=== PATIENT | female | born 1960 | race Caucasian/White ===

== ENCOUNTER 2017-04-10 06:24 | Day surgery (SDC) | payer BC ==
[2017-04-08 09:07] VITALS: BMI 38.7
[~2017-04-10 06:24] MED LIST: ALPRAZolam 0.25 MG TAB PO PRN; ALPRAZolam 0.5 MG TAB PO PRN; ASPIRIN 325 MG TAB PO STA; ATORVASTATIN 80 MG TAB PO STA; NITROGLYCERIN SL TABS 0.4 MG TAB SUBLINGUAL PRN
[2017-04-10] MEDS ORDERED: SODIUM CHLORIDE 0.9% 1,000 ML in EMPTY BAG 1 BAG IV ONE (06:30)
[2017-04-10] MEDS ORDERED: INSULIN LISPRO (humaLOG) 300 UNIT/3 ML VIAL SQ ONE (06:53)
[2017-04-10 06:54] LABS: Glucose,Whole Blood 210 mg/dL (75-99)
[2017-04-10] MEDS ORDERED: LIDOCAINE 2% INJ 20 MG/ML (20 ML MDV) ONE (07:07)
[2017-04-10] MEDS ORDERED: VERAPAMIL 2.5 MG/ML 2 ML AMP ONE (07:07)
[2017-04-10 07:17] VITALS: PULSE 66
[2017-04-10] MEDS ORDERED: fentaNYL (PF) 50 MCG/ML 2 ML AMP ONE (07:17)
[2017-04-10] MEDS ORDERED: diphenhydrAMINE 50 MG/ML 1 ML VIAL ONE (07:17)
[2017-04-10] MEDS ORDERED: HEPARIN SODIUM 1,000 UN/ML (10ML VL) ONE (07:17)
[2017-04-10 07:25] LABS: Anion Gap 9 mmol/L; Blood Urea Nitrogen 17 mg/dL (7-17); Calcium 9.7 mg/dL (8.4-10.2); Carbon Dioxide 33 mmol/L (22-30); Chloride 100 mmol/L (98-107); Glucose 182 mg/dL (74-99); Non-African American GFR(MDRD) >60 (>60 ml/min/1.73 sqM); Sodium 142 mmol/L (137-145)
[2017-04-10] MEDS ORDERED: SODIUM CHLORIDE 0.9% 1,000 ML IV ONE (07:40)
[2017-04-10] MEDS ORDERED: fentaNYL (PF) 50 MCG/ML 2 ML AMP IVP ONE (07:46)
[2017-04-10] MEDS ORDERED: LIDOCAINE 2% INJ 20 MG/ML SQ ONE (07:48)
[2017-04-10] MEDS ORDERED: MIDAZOLAM 2 MG/2 ML VIAL ONE (07:49)
[2017-04-10] MEDS ORDERED: VERAPAMIL SYRINGE (5 MG/10 ML) INTRAARTER ONE (07:50)
[2017-04-10] MEDS ORDERED: MIDAZOLAM 2 MG/2 ML VIAL IVP ONE (07:51)
[2017-04-10] MEDS ORDERED: IOHEXOL 350 MG/ML 125ML BOTTLE INJ ONE (08:03)
[2017-04-10] MEDS ORDERED: RX INFO: IV CONTRAST WAS GIVEN 1 EACH MISC MISCELLANE PRN (08:23)
[2017-04-10] MEDS ORDERED: SODIUM CHLORIDE 0.9% 1,000 ML IV SCH (08:30)
[2017-04-10 08:35] VITALS: RESP 18
[2017-04-10 08:35] LABS: Glucose,Whole Blood 173 mg/dL (75-99)
[2017-04-10] MEDS ORDERED: ATENOLOL 25 MG TAB PO SCH (09:00)
[2017-04-10] MEDS ORDERED: NON-FORMULARY DRUG (Aspirin [Adult Low Dose Aspirin Ec] 81 MG) PO SCH (09:00)
[2017-04-10] MEDS ORDERED: BACLOFEN 10 MG TAB PO SCH (09:00)
[2017-04-10] MEDS ORDERED: PREGABALIN 75 MG CAP PO SCH (09:00)
[2017-04-10] MEDS ORDERED: HYDROCHLOROTHIAZIDE 25 MG TAB PO SCH (09:00)
[2017-04-10] MEDS ORDERED: RAMIPRIL 10 MG PO SCH (09:00)
[2017-04-10 12:59] VITALS: BP 144/74
[2017-04-10] MEDS ORDERED: VERAPAMIL HCL 200 MG PO SCH (21:00)
[2017-04-10] MEDS ORDERED: INSULIN GLARGINE SQ SCH (21:00)
[2017-04-10] MEDS ORDERED: VENLAFAXINE HCL ER 150 MG CAP PO SCH (21:00)
--- NOTE | 2017-04-10 21:19 | CC ---
Mrs. Rankin is a 57 year old female with a known history of hypertension, hyperlipidemia, diabetes mellitus, who recently underwent myocardial perfusion imaging that revealed evidence of inferior wall defect with evidence of cardiomyopathy. In view of that recommendation was made regarding cardiac catheterization. The procedure as well as risks and complications were discussed with the patient who is in full understanding and agreement. PROCEDURE: The patient was brought to the quality assurance qa lab analyst in a fasting semi-sedated state. After receiving Fentanyl and Benadryl, achieving moderate conscious sedated state, using Xylocaine anesthesia and Seldinger technique, a 6 Andorran sheath was introduced into the right radial artery . Selective right and left coronary artery was performed using 5 Andorran 4 Bend, right and left Claude catheter. Multiple views of the right coronary artery including hemiaxial views were obtained. Following that, the 5 Andorran tight pigtail catheter was introduced into the left ventricle and a 30 degree BURRIS view of the left ventricle was obtained. Following that, catheter and sheath were removed. Hemostasis was obtained with deployment of a TR band. There were no immediate complications. The patient was returned to her room in stable condition. Of note, the patient received 5000 units of intravenous heparin as well as intra- arterial verapamil. FINDINGS: LEFT MAIN: This is a large size vessel bifurcating into left circumflex, left anterior descending artery. Left main coronary artery has no evidence of obstructive coronary artery disease. LEFT ANTERIOR DESCENDING ARTERY: This is a large size vessel reaching towards the apex with a wrap around the apex segment giving rise to a diagonal branch large in caliber proximally. The left anterior descending artery in the mid segment has 30% plaque. The rest of the vessel has no high grade stenosis. LEFT CIRCUMFLEX: This is a large nondominant vessel, large vessel, giving rise to a large obtuse marginal branch. The left circumflex as well as branches have no evidence of obstructive coronary artery disease. RIGHT CORONARY ARTERY: This is a large dominant vessel, bifurcating distally into PDA and posterolateral segment and branches. The right coronary artery and its branches have no evidence of obstructive coronary artery disease. LEFT VENTRICULOGRAM: Left ventriculogram was performed in 30 degree BURRIS view and revealed global hypokinesis with an ejection fraction of 30 to 35%. There was 2+ mitral regurgitation. HEMODYNAMICS: There was no gradient across the aortic valve. The left ventricular end diastolic pressure was 22 mmHg. CONCLUSION: 1. Mild obstructive disease involving the mid left anterior descending coronary artery. 2. Severely impaired left ventricular systolic function with global hypokinesis. RECOMMENDATIONS: The findings are consistent with nonischemic cardiomyopathy. At this time, I will continue medical therapy with optimizing her regimen. Depending on her progress, further recommendations will be made. Those findings and recommendations were discussed with the patient and her family who are in full understanding and agreement. JARETT
--- NOTE | 2017-04-10 21:23 | MISC ---
Dear Dr. Schwartz: I had the pleasure of performing cardiac catheterization on Mrs. Rankin at [facility] on April 10 and a full copy of procedure note will be forwarded to you. In brief, she was found to have mild obstructive disease involving the mid LAD with severely impaired left ventricular systolic function with global hypokinesis, consistent with nonischemic cardiomyopathy. Based on those findings, I will optimize her medical regimen. Depending on her progress, further recommendations will be made. Thank you again for allowing me to participate in her care. Please feel free to call for any questions. Sincerely yours, JARETT
== END 2017-04-10 13:15 | disposition home or self-care (01) ==
LOC: CATHCVL 06:24
PROVIDERS: ATTEND Internal Medicine Interventional Cardiology
DX: I25.10 Atherosclerotic heart disease of native coronary artery without angina pectoris (principal); I25.5 Ischemic cardiomyopathy; E78.2 Mixed hyperlipidemia; I10 Essential (primary) hypertension; E11.9 Type 2 diabetes mellitus without complications; E78.00 Pure hypercholesterolemia, unspecified; M19.90 Unspecified osteoarthritis, unspecified site; I08.1 Rheumatic disorders of both mitral and tricuspid valves; Z82.49 Family history of ischemic heart disease and other diseases of the circulatory system; Z79.84 Long term (current) use of oral hypoglycemic drugs; Z79.82 Long term (current) use of aspirin; Z79.4 Long term (current) use of insulin; Z79.891 Long term (current) use of opiate analgesic; Z79.899 Other long term (current) drug therapy; Z88.1 Allergy status to other antibiotic agents; Z88.0 Allergy status to penicillin; Z88.8 Allergy status to other drugs, medicaments and biological substances
CPT/HCPCS: 93458; 80048; 99152; C1894; C1769; J2001; J2250; J3010; Q9967

== ENCOUNTER 2017-09-06 11:09 | Day surgery (SDC) | payer BC ==
[2017-09-03 13:49] VITALS: BMI 41.8
--- NOTE | 2017-09-05 21:47 | HP ---
HISTORY AND PHYSICAL CHIEF COMPLAINT: Left hand pain and numbness. HISTORY OF PRESENT ILLNESS: The patient is a 57-year-old retired female who presents with progressive left hand pain and numbness for the past several years. It has worsened recently. She notes pain, numbness, and difficulty with gripping and grasping. She is having night symptoms. She has tried previous injections along with bracing and medications with only partial temporary relief. PAST MEDICAL HISTORY: Significant for hypertension, type 2 diabetes, and rheumatic fever. PAST SURGICAL HISTORY: Significant for cardiac catheterizations, section, cholecystectomy, colonoscopy, and recent right carpal tunnel release. CURRENT MEDICATIONS: Aspirin, baclofen, Flonase, albuterol, hydrochlorothiazide, oxycodone, Requip, and Ventolin. ALLERGIES: SHE NOTES SENSITIVITY TO CODEINE with ALLERGIES SHE NOTES TO AMOXICILLIN AND AUGMENTIN. FAMILY HISTORY: Significant for heart disease, diabetes, and cancer. SOCIAL HISTORY: Significant for previous tobacco use, however she quit in 1989. REVIEW OF SYSTEMS: Sixteen point review of systems otherwise reviewed and is noncontributory. On examination, the patient is approximately 5 feet tall, 216 pounds, of endomorphic habitus. HEENT exam is nonfocal. NECK: Supple. She is nontender about the left shoulder and elbow. On examination of her left wrist, she has a positive carpal tunnel compression test in addition to positive Tinel's of the carpal canal. Mild thenar atrophy is noted. Adductor pollicis brevis strength is 5 minus over 5. Light touch is diffusely diminished in the left digits. Her distal neurovascular exam otherwise appears intact. EMG report from 07/22/2017 shows moderate left carpal tunnel syndrome. IMPRESSION: 1. Left carpal tunnel syndrome-symptomatic. 2. Increased body mass index. 3. Giv-hadbpdq-pkajyczeb diabetes. RECOMMENDATIONS: I talked to the patient at length regarding her treatment options. At this point, she is quite symptomatic and opts to proceed with surgery. We will plan to proceed with left carpal tunnel release. Likely we will perform that as an outpatient procedure utilizing local anesthetic and IV sedation. MMODL / IJN: [id number] /
[~2017-09-06 11:09] MED LIST changes: -ALPRAZolam 0.25 MG TAB PO PRN; -ALPRAZolam 0.5 MG TAB PO PRN; -ASPIRIN 325 MG TAB PO STA; -ATORVASTATIN 80 MG TAB PO STA; +LACTATED RINGERS 1,000 ML IV SCH; -NITROGLYCERIN SL TABS 0.4 MG TAB SUBLINGUAL PRN; +ONDANSETRON 4 MG/2 ML VIAL IVP PRN; +ceFAZolin IN SWFI 2 GM/20 ML SYRINGE IVP ONE; +fentaNYL (PF) 50 MCG/ML 2 ML AMP IV PRN
[2017-09-06 11:23] VITALS: RESP 16; TEMP 98.1
[2017-09-06] MEDS ORDERED: LIDOCAINE 1% 20 ML VIAL (10MG/ML) FOR IV START INTRADERMA ONE (11:32)
[2017-09-06] MEDS ORDERED: DEXAMETHASONE SOD PHOS (MDV) 100 MG/10 ML VIAL IVP ONE (11:35)
[2017-09-06 11:36] LABS: Glucose,Whole Blood 136 mg/dL (75-99)
[2017-09-06] MEDS ORDERED: SCOPOLAMINE 1.5MG/72HR PATCH TRANSDERM ONE (11:36)
[2017-09-06] MEDS ORDERED: MIDAZOLAM 2 MG/2 ML VIAL ONE (11:37)
[2017-09-06] MEDS ORDERED: PROPOFOL 10 MG/ML 20 ML VIAL IV ONE (11:37)
[2017-09-06] MEDS ORDERED: MORPHINE SULFATE 10 MG/ML SYRINGE ONE (11:37)
[2017-09-06] MEDS ORDERED: LIDOCAINE 1% INJ 10MG/ML (20 ML MDV) ONE (11:37)
[2017-09-06] MEDS ORDERED: BUPIVACAINE (PF) 0.25% 30 ML VIAL SQ ONE (11:51)
--- NOTE | 2017-09-06 12:07 | P.OP ---
Date of Procedure: 09/06/17 Preoperative Diagnosis: Left carpal tunnel syndrome-symptomatic Postoperative Diagnosis: Same Procedure(s) Performed: Left carpal tunnel release Anesthesia: MAC, local Surgeon: Burak Tuttle Estimated Blood Loss (ml): 1 Pathology: none sent Condition: stable Disposition: PACU Indications for Procedure: The patient's a 57-year-old female who presents with progressive left hand pain and numbness secondary carpal tunnel syndrome despite conservative measures. A discussion of the risks and benefits of operative intervention versus continued conservative measures was made with the patient. She opted to proceed with surgery. Operative risks to include infection, neurovascular injury, possible incomplete resolution of symptoms, possible recurrence of symptoms and need for subsequent procedures was discussed. Informed consent was obtained. Operative Findings: As below Description of Procedure: The patient was brought to the operating room, and after induction of IV sedation the left upper extremity was prepped and draped in a normal fashion. The proposed incision site was outlined with a skin marker in line with the radial aspect of the fourth ray extending from the volar wrist crease distally 2 -1/2 cm. 8 mL of quarter percent plain Marcaine was injected. The tourniquet was inflated to 250 mmHg. The skin incision was then made. The the subcutaneous tissues were divided sharply. The superficial palmar fascia was identified and split in line with the skin incision. The transverse carpal ligament was identified and transected under direct visualization distally to level palmar fat pad. I felt this was adequate distal release. Proximally was taken level the volar wrist crease. A plane above and below the transverse carpal ligament was then bluntly developed with tenotomies. The confluence of the distal forearm fascia and the transverse carpal ligament was then transected under direct visualization proximally with the tines pointed in the ulnar direction. I felt this was adequate proximal release. Neural lysis was not performed. The wound was irrigated normal saline. The skin was reprepped with simple 3-0 nylon sutures. A sterile dressing was applied. The tourniquet was deflated less than 15 minutes total tourniquet time. The patient was awoken from sedation and transferred to recovery room in good condition. Blood loss was estimated at 1 mL. No complications were incurred. Sponge and needle counts were correct at the end the case.
[2017-09-06 12:37] VITALS: BP 112/53; PULSE 71
== END 2017-09-06 12:44 | disposition home or self-care (01) ==
LOC: OR 11:09
PROVIDERS: ATTEND Orthopaedic Surgery
DX: G56.02 Carpal tunnel syndrome, left upper limb (principal); I10 Essential (primary) hypertension; J44.9 Chronic obstructive pulmonary disease, unspecified; E11.9 Type 2 diabetes mellitus without complications; Z79.4 Long term (current) use of insulin; Z87.891 Personal history of nicotine dependence; M79.7 Fibromyalgia; Z79.82 Long term (current) use of aspirin; Z79.891 Long term (current) use of opiate analgesic; Z79.51 Long term (current) use of inhaled steroids; Z79.899 Other long term (current) drug therapy; Z88.5 Allergy status to narcotic agent; Z88.0 Allergy status to penicillin
CPT/HCPCS: 64721; J2250; J2270; J0690; J2405; J2001; J1100; J2704

== ENCOUNTER → 2018-02-20 | Outpatient (CLI) | payer BC ==
--- NOTE | 2018-02-20 13:51 | XR ---
EXAMINATION TYPE: XR foot complete RT DATE OF EXAM: 02/20/2018 CLINICAL HISTORY: Right foot pain for one week. TECHNIQUE: Frontal, lateral, and oblique images of the right foot are obtained. COMPARISON: None FINDINGS: There is no acute fracture/dislocation evident in the right foot. There is flexion in the second through fifth toes. There is varus positioning distal third through fifth toes. There are smal l size superior and large size inferior calcaneal spurs. There is mild to moderate spurring midfoot l evel near the Lisfranc joints seen best on lateral view along dorsal surface. Mild diffuse subcutaneo us edema is present. IMPRESSION: There are degenerative changes as detailed above.
== END | disposition home or self-care (01) ==
LOC: RADXRMAIN 13:23
PROVIDERS: ATTEND Family Medicine
DX: R93.7 Abnormal findings on diagnostic imaging of other parts of musculoskeletal system (principal); M79.671 Pain in right foot

== ENCOUNTER → 2018-11-04 | Outpatient (CLI) | payer BC ==
--- NOTE | 2018-11-05 10:07 | MM ---
Reason for exam: screening (asymptomatic). Last mammogram was performed 3 years and 3 months ago. History: Family history of breast cancer in 2 sisters. Physical Findings: A clinical breast exam by your physician is recommended on an annual basis and results should be correlated with mammographic findings. MG Screening Mammo w CAD Bilateral CC and MLO view(s) were taken. Prior study comparison: July 22, 2015, bilateral MG screening mammo w CAD. February 26, 2014, bilateral MG screening mammo w CAD. There are scattered fibroglandular densities. Finding: There is a 3 mm equal density (isodense), oval mass in the subareolar position of the right breast. ASSESSMENT: Incomplete: need additional imaging evaluation, BI-RAD 0 RECOMMENDATION: Special view mammogram of the right breast. If lesion persists on supplemental views, image directed ultrasound is recommended. [facility] will attempt to contact patient to return for supplemental views and ultrasound if indicated.
== END | disposition home or self-care (01) ==
LOC: RADMAMWWP 07:38
PROVIDERS: ATTEND Family Medicine
DX: Z12.31 Encounter for screening mammogram for malignant neoplasm of breast (principal)
CPT/HCPCS: 77067

== ENCOUNTER → 2018-11-07 | Outpatient (CLI) | payer BC ==
--- NOTE | 2018-11-10 08:33 | MM ---
Reason for exam: additional evaluation requested from abnormal screening. Last mammogram was performed less than 1 month ago. History: Patient is postmenopausal. Family history of breast cancer in sister at age 21. Physical Findings: Nurse did not find any significant physical abnormalities on exam. MG Work Up Mamm w CAD RT Spot compression CC, spot compression MLO, and ML view(s) were taken of the right breast. Prior study comparison: November 04, 2018, bilateral MG screening mammo w CAD. July 22, 2015, bilateral MG screening mammo w CAD. There are scattered fibroglandular densities. There is no discrete abnormality. Previous nodule on compression. This finding is changed when compared with previous exams. These results were verbally communicated with the patient and result sheet given to the patient on 11/07/18. ASSESSMENT: Incomplete: need additional imaging evaluation, BI-RAD 0 RECOMMENDATION: Ultrasound of the right breast.
--- NOTE | 2018-11-10 08:35 | USB ---
Reason for exam: additional evaluation requested from abnormal screening. History: Patient is postmenopausal. Family history of breast cancer in sister at age 21. US Breast Workup Limited RT Right limited breast ultrasound including focal area of concern, retroareolar and axilla demonstrates a 0.3 x 0.4 x 0.3cm solid lesion at posterior nipple. These results were verbally communicated with the patient and result sheet given to the patient on 11/07/18. ASSESSMENT: Suspicious, BI-RAD 4 RECOMMENDATION: Ultrasound core biopsy of the right breast. Called with mammographic findings and has scheduled an appointment for the patient for 11/17/[address] Schwartz. PRELIMINARY REPORT CALLED AND FAXED TO DR. SCHWARTZ ON 11/10/18.
== END | disposition home or self-care (01) ==
LOC: RADMAMWWP 13:01
PROVIDERS: ATTEND Family Medicine
DX: R92.8 Other abnormal and inconclusive findings on diagnostic imaging of breast (principal)
CPT/HCPCS: 77065

== ENCOUNTER → 2018-12-01 | Day surgery (SDC) | payer BC ==
[2018-12-01 07:49] VITALS: RESP 16; BMI 96.0
--- NOTE | 2018-12-01 15:20 | USB ---
EXAMINATION TYPE: US biopsy breast VAD RT, MG diagnostic mammo RT wo CAD DATE OF EXAM: 12/01/2018 CLINICAL HISTORY: R92.8 PREV ABN MAMMO. TECHNIQUE: Ultrasound guided core biopsy of right breast. COMPARISON: 11/07/2018 FINDINGS: The procedure of ultrasound guided core biopsy was explained to the patient. Benefits, alternatives, and risks were discussed. An informed consent was then obtained. Preprocedural timeout was performed. The patient was placed in supine positioning for imaging and for the procedure. The overlying skin was prepped and draped in usual sterile fashion. Lidocaine buffered with bicarbonate was used as anesthetic into the skin and subcutaneous tissue up to a 3 x 4 x 3 mm retroareolar mass. Under ultrasound guidance, a 12-gauge vacuum assisted biopsy gun device was used to obtain 4 core samples. Following this, a ribbon-shaped biopsy marker was left at the site of biopsy. The patient tolerated the procedure well without any immediate complication. The patient was kept in the radiology department for short stay after the procedure and then discharged home in stable condition. IMPRESSION: Successful, uncomplicated ultrasound guided core biopsy of a 3 x 4 x 3 mm retroareolar right breast mass, full pathology results to follow. Pathology Results: Benign RIGHT BREAST, NEEDLE CORE BIOPSIES: Fibrocystic spectrum changes. Pseudoangiomatous stromal hyperplasia (PASH). Recommendation Surgical consult of the right breast. (TUCKER) JARETT
[2018-12-01 16:23] VITALS: BP 169/89; PULSE 63; TEMP 98.1
== END | disposition home or self-care (01) ==
LOC: RADUSWWP 07:07
PROVIDERS: ATTEND Family Medicine
DX: N60.11 Diffuse cystic mastopathy of right breast (principal); N62 Hypertrophy of breast
CPT/HCPCS: 88305; 77065; 19083; A4648; J2001

== ENCOUNTER → 2019-03-18 | Outpatient (CLI) | payer BC ==
--- NOTE | 2019-03-18 10:19 | XR ---
EXAMINATION TYPE: XR thoracic spine 2V DATE OF EXAM: 03/18/2019 CLINICAL HISTORY: Back pain after injury. TECHNIQUE: Frontal, lateral, and swimmer's view of thoracic spine are obtained. COMPARISON: None. FINDINGS: Thoracic spine show satisfactory alignment without evidence of acute fracture or dislocatio n. Moderate multilevel degenerative disc disease is seen of the thoracic spine as bridging anterior o steophytes and intervertebral disc space narrowing at multiple levels with endplate sclerosis. Swimme r's view is suboptimal. Vertebral body heights are preserved. Visualized ribs are unremarkable. IMPRESSION: Although the swimmer's view is suboptimal there is no gross evidence of vertebral body he ight loss or malalignment within the thoracic spine. Moderate multilevel degenerative disc disease is seen.
== END | disposition home or self-care (01) ==
LOC: RADXRMAIN 09:45
PROVIDERS: ATTEND Family Medicine
DX: M51.34 Other intervertebral disc degeneration, thoracic region (principal)
CPT/HCPCS: 72070

== ENCOUNTER 2019-08-10 09:51 | Observation (INO) | payer BC ==
[2019-08-10 10:01] VITALS: RESP 18
--- NOTE | 2019-08-10 10:29 | ED ---
General Adult HPI - General Chief complaint: Shortness of Breath Stated complaint: SOB Time Seen by Provider: 08/10/19 10:10 Source: patient, family, RN notes reviewed Mode of arrival: ambulatory Limitations: no limitations - History of Present Illness Initial comments: Patient is a pleasant 59-year-old female presenting to the emergency Department with complaints of shortness of breath. Onset of symptoms was today. Patient does have some chronic mild dyspnea that has been diagnosed as asthma. Patient states she never really had an asthma attack. Patient does not hear any wheezing. Patient denies any chest or new back discomfort. Patient does have some chronic back discomfort however this is chronic and unchanged. No leg pain or leg swelling. No cough. No fevers. No history of similar symptoms previously. - Related Data Home Medications Medication Instructions Recorded Confirmed Baclofen 10 mg PO TID 04/08/17 12/01/18 Hydrochlorothiazide 25 mg PO DAILY 04/08/17 12/01/18 Insulin Glargine,Hum.rec.anlog 110 units SQ HS 04/08/17 12/01/18 [Toujeo Solostar] Pregabalin [Lyrica] 75 mg PO TID 04/08/17 12/01/18 Ramipril 10 mg PO DAILY 04/08/17 12/01/18 metFORMIN HCL 2,000 mg PO AC-SUPPER 04/08/17 12/01/18 oxyCODONE HCL [OxyCONTIN] 30 mg PO Q6H PRN 04/08/17 12/01/18 Albuterol Inhaler [Ventolin Hfa 1 - 2 puff INHALATION Q6HR PRN 08/12/17 12/01/18 Inhaler] Ascorbic Acid [Vitamin C] 500 mg PO DAILY 08/12/17 12/01/18 Calcium/Magnesium/Zinc 1 each PO DAILY 08/12/17 12/01/18 [Ysijevx-Sbhhgmgvp-Flhd Tablet] Cholecalciferol [Vitamin D3] 1,200 unit PO DAILY 08/12/17 12/01/18 Fenofibrate Nanocrystallized 145 mg PO DAILY 08/12/17 12/01/18 [Fenofibrate] Multivitamins, Thera [Multivitamin 1 tab PO DAILY 08/12/17 12/01/18 (formulary)] Atenolol [Tenormin] 25 mg PO DAILY 11/17/18 12/01/18 Atenolol [Tenormin] 50 mg PO HS 11/17/18 12/01/18 Fluticasone/Vilanterol [Breo 1 inhalation INHALATION DAILY 11/17/18 12/01/18 Ellipta 200-25 Mcg INH] Insulin Aspart [NovoLOG] 15 units SQ ACHS 11/17/18 12/01/18 Allergies Allergy/AdvReac Type Severity Reaction Status Date / Time clavulanic acid Allergy Anaphylaxis Verified 12/01/18 07:37 [From Augmentin] codeine Allergy Abdominal Verified 12/01/18 07:37 Pain fentanyl Allergy Anaphylaxis Verified 12/01/18 07:37 levofloxacin [From Levaquin] Allergy Anaphylaxis Verified 12/01/18 07:37 amoxicillin AdvReac doesn't Verified 12/01/18 07:37 work Review of Systems ROS Statement: Those systems with pertinent positive or pertinent negative responses have been documented in the HPI. ROS Other: All systems not noted in ROS Statement are negative. Constitutional: Denies: fever, chills Eyes: Denies: eye pain ENT: Denies: ear pain Respiratory: Reports: as per HPI, dyspnea. Denies: cough Cardiovascular: Denies: chest pain Endocrine: Denies: fatigue Gastrointestinal: Denies: abdominal pain Genitourinary: Denies: dysuria Musculoskeletal: Denies: back pain Skin: Denies: rash Neurological: Denies: weakness Past Medical History Past Medical History: Asthma, Diabetes Mellitus, Fibromyalgia, Hyperlipidemia, Hypertension, Musculoskeletal Disorder, Osteoarthritis (OA) Additional Past Medical History / Comment(s): Rheumatic fever as a child. +Influenza A diagnosed 11/17/18 History of Any Multi-Drug Resistant Organisms: MRSA Date of last positivie culture/infection: 2008 MDRO Source:: R foot Past Surgical History: Adenoidectomy, Bladder Surgery, Section, Cholecystectomy, Ear Surgery, Joint Replacement, Tonsillectomy Additional Past Surgical History / Comment(s): R hip replacement; 2 hand surgeries Past Anesthesia/Blood Transfusion Reactions: Previous Problems w/ Anesthesia, Family History of Problems w/ Anesthesia, Motion Sickness, Postoperative Nausea & Vomiting (PONV) Additional Past Anesthesia/Blood Transfusion Reaction / Comment(s): mother gets PONV Past Psychological History: Depression Smoking Status: Former smoker Past Alcohol Use History: None Reported Past Drug Use History: None Reported - Past Family History Father Family Medical History: Cancer Mother Family Medical History: Cancer Brother(s) Family Medical History: Cancer General Exam Limitations: no limitations General appearance: alert, in no apparent distress Head exam: Present: normocephalic Eye exam: Present: normal appearance, PERRL ENT exam: Present: normal oropharynx Neck exam: Present: normal inspection Respiratory exam: Present: normal lung sounds bilaterally Cardiovascular Exam: Present: regular rate, normal rhythm Expanded Peripheral pulses: 2+: Radial (R), Radial (L), Posterior Tibialis (R), Posterior Tibialis (L), Dorsalis Pedis (R), Dorsalis Pedis (L) GI/Abdominal exam: Present: soft. Absent: tenderness Extremities exam: Present: pedal edema (+1 bilateral which patient states is chronic). Absent: calf tenderness Back exam: Present: normal inspection Neurological exam: Present: alert Psychiatric exam: Present: normal affect, normal mood Skin exam: Present: normal color Course Vital Signs 08/10/19 08/10/19 09:57 11:53 Temperature 97.9 F Pulse Rate 83 Respiratory 18 18 Rate Blood Pressure 165/78 159/79 O2 Sat by Pulse 90 L Oximetry EKG Findings - EKG Comments: EKG Findings:: Normal sinus rhythm 77. WA 18. QRS 110. QT 402. QTC 54. Normal axis. Normal QRS. No acute ST change. Medical Decision Making - Medical Decision Making Patient reevaluated and updated. Case was discussed in detail with Dr. Ulrich, who will admit for Dr. Schwartz. - Lab Data Result diagrams: 08/10/19 10:20 08/10/19 10:20 Lab Results 08/10/19 08/10/19 08/10/19 Range/Units 10:20 10:20 10:20 WBC 6.8 (3.8-10.6) k/uL RBC 4.39 (3.80-5.40) m/uL Hgb 12.0 (11.4-16.0) gm/dL Hct 38.0 (34.0-46.0) % MCV 86.7 (80.0-100.0) fL MCH 27.3 (25.0-35.0) pg MCHC 31.5 (31.0-37.0) g/dL RDW 14.8 (11.5-15.5) % Plt Count 161 (150-450) k/uL Neutrophils % 71 % Lymphocytes % 21 % Monocytes % 5 % Eosinophils % 2 % Basophils % 1 % Neutrophils # 4.9 (1.3-7.7) k/uL Lymphocytes # 1.4 (1.0-4.8) k/uL Monocytes # 0.3 (0-1.0) k/uL Eosinophils # 0.1 (0-0.7) k/uL Basophils # 0.0 (0-0.2) k/uL PT 10.1 (9.0-12.0) sec INR 0.9 (<1.2) APTT 24.0 (22.0-30.0) sec D-Dimer 3.38 H (<0.60) mg/L FEU Sodium 138 (137-145) mmol/L Potassium 4.1 (3.5-5.1) mmol/L Chloride 99 (98-107) mmol/L Carbon Dioxide 27 (22-30) mmol/L Anion Gap 12 mmol/L BUN 25 H (7-17) mg/dL Creatinine 1.05 H (0.52-1.04) mg/dL Est GFR (CKD-EPI)AfAm 68 (>60 ml/min/1.73 sqM) Est GFR (CKD-EPI)NonAf 59 (>60 ml/min/1.73 sqM) Glucose 343 H (74-99) mg/dL Calcium 10.1 (8.4-10.2) mg/dL Total Bilirubin 0.5 (0.2-1.3) mg/dL AST 21 (14-36) U/L ALT 22 (9-52) U/L Alkaline Phosphatase 82 (38-126) U/L Creatine Kinase 30 (30-135) U/L Troponin I (0.000-0.034) ng/mL NT-Pro-B Natriuret Pep pg/mL Total Protein 6.8 (6.3-8.2) g/dL Albumin 4.1 (3.5-5.0) g/dL 08/10/19 08/10/19 Range/Units 10:20 10:20 WBC (3.8-10.6) k/uL RBC (3.80-5.40) m/uL Hgb (11.4-16.0) gm/dL Hct (34.0-46.0) % MCV (80.0-100.0) fL MCH (25.0-35.0) pg MCHC (31.0-37.0) g/dL RDW (11.5-15.5) % Plt Count (150-450) k/uL Neutrophils % % Lymphocytes % % Monocytes % % Eosinophils % % Basophils % % Neutrophils # (1.3-7.7) k/uL Lymphocytes # (1.0-4.8) k/uL Monocytes # (0-1.0) k/uL Eosinophils # (0-0.7) k/uL Basophils # (0-0.2) k/uL PT (9.0-12.0) sec INR (<1.2) APTT (22.0-30.0) sec D-Dimer (<0.60) mg/L FEU Sodium (137-145) mmol/L Potassium (3.5-5.1) mmol/L Chloride (98-107) mmol/L Carbon Dioxide (22-30) mmol/L Anion Gap mmol/L BUN (7-17) mg/dL Creatinine (0.52-1.04) mg/dL Est GFR (CKD-EPI)AfAm (>60 ml/min/1.73 sqM) Est GFR (CKD-EPI)NonAf (>60 ml/min/1.73 sqM) Glucose (74-99) mg/dL Calcium (8.4-10.2) mg/dL Total Bilirubin (0.2-1.3) mg/dL AST (14-36) U/L ALT (9-52) U/L Alkaline Phosphatase (38-126) U/L Creatine Kinase (30-135) U/L Troponin I <0.012 (0.000-0.034) ng/mL NT-Pro-B Natriuret Pep 200 pg/mL Total Protein (6.3-8.2) g/dL Albumin (3.5-5.0) g/dL - Radiology Data Radiology results: report reviewed (Computed tomography scan of the chest reported as multiple small pulmonary emboli. No heart strain as discussed with radiologist.), image reviewed (Chest x-ray reveals no acute process) Critical Care Time Critical Care Time: Yes Total Critical Care Time: 32 Disposition Clinical Impression: Pulmonary embolism Disposition: ADMITTED IP TO THIS HOSP Is patient prescribed a controlled substance at d/c from ED?: No Referrals: Bassem Schwartz DO [Primary Care Provider] - 1-2 days Decision Time: 12:43
--- NOTE | 2019-08-10 10:45 | XR ---
EXAMINATION TYPE: XR chest 2V DATE OF EXAM: 08/10/2019 COMPARISON: NONE HISTORY: Shortness of breath with history of asthma. TECHNIQUE: Frontal and lateral views of the chest are obtained. FINDINGS: There is no focal air space opacity, pleural effusion, or pneumothorax seen. The cardiac silhouette size is mildly enlarged. The osseous structures are intact. Moderate multilevel degenera tive change of the spine. IMPRESSION: No acute cardiopulmonary process.
[2019-08-10 10:50] LABS: Basophils % (A) 1 %; Eosinophils # (A) 0.1 k/uL (0-0.7); Eosinophils % (A) 2 %; Lymphocytes # (A) 1.4 k/uL (1.0-4.8); Lymphocytes % (A) 21 %; MCH 27.3 pg (25.0-35.0); MCHC 31.5 g/dL (31.0-37.0); MCV 86.7 fL (80.0-100.0); Mean Platelet Volume 7.9; Monocytes # (A) 0.3 k/uL (0-1.0); Monocytes % (A) 5 %; Neutrophils # (A) 4.9 k/uL (1.3-7.7); Neutrophils % (A) 71 %; Platelet Count 161 k/uL (150-450); RBC 4.39 m/uL (3.80-5.40); RDW 14.8 % (11.5-15.5); WBC 6.8 k/uL (3.8-10.6)
[2019-08-10 11:00] LABS: Albumin 4.1 g/dL (3.5-5.0); Calcium 10.1 mg/dL (8.4-10.2); Potassium 4.1 mmol/L (3.5-5.1); Total Bilirubin 0.5 mg/dL (0.2-1.3); Total Protein 6.8 g/dL (6.3-8.2)
[2019-08-10 11:03] LABS: INR 0.9 (<1.2); Prothrombin Time 10.1 sec (9.0-12.0)
[2019-08-10 11:36] LABS: D-Dimer 3.38 mg/L FEU (<0.60)
[2019-08-10] MEDS ORDERED: HEPARIN SODIUM,PORCINE 10,000 UNIT/ML 1 ML VIAL IV ONE ×2 (12:31→15:26)
[2019-08-10] MEDS ORDERED: HEPARIN SODIUM,PORCINE 5,000 UNIT/ML 1 ML VIAL IV PRN ×2 (12:31→15:26)
--- NOTE | 2019-08-10 12:33 | CT ---
EXAMINATION TYPE: CT angio chest DATE OF EXAM: 08/10/2019 COMPARISON: NONE HISTORY: Dyspnea. CT DLP: 665 mGycm. Automated Exposure Control for Dose Reduction was Utilized. CONTRAST: CTA scan of the thorax is performed with IV Contrast, patient injected with 80 mL of Isovue 370, pulm onary embolism protocol. MIP Images are created on CT scanner and reviewed. FINDINGS: LUNGS: The lungs are grossly clear, there is no concerning parenchymal mass or nodule identified. T here is no pleural effusion or pneumothorax seen. The tracheobronchial tree is patent. MEDIASTINUM: There are pulmonary emboli within the left main pulmonary artery, left lower lobe segmen kay and subsegmental pulmonary arteries and left upper lobe segmental and subsegmental pulmonary salo reji. There are also filling defects in the segmental and subsegmental branches of the right pulmonar y arteries to the right middle lobe, right upper lobe, and right lower lobe. The main pulmonary arter y is upper limits of normal measuring 2.9 cm. There is no abnormal right ventricular to left ventricu lar ratio. There are no greater than 1 cm hilar or mediastinal lymph nodes. No cardiomegaly or pericardial eff usion is seen. Very few coronary calcification seen. Heart is upper limits of normal size. OTHER: Hepatic steatosis. Moderate multilevel degenerative changes of the spine with findings suggest ing diffuse idiopathic skeletal hyperostosis. IMPRESSION: Exam is positive for pulmonary emboli with filling defects involving segmental and subsegmental branc hes of all major pulmonary lobes as a nonocclusive embolus in the left main pulmonary artery. No conv incing evidence of right heart strain. Findings communicated with Dr. Carpenter by Dr. Brock at 12:31 on 10/11/18.
[2019-08-10] MEDS ORDERED: ENOXAPARIN 100 MG/ML SYRINGE SQ STA (12:37)
[2019-08-10] MEDS ORDERED: NALOXONE 0.4 MG/ML 1 ML VIAL IV PRN (12:43)
[2019-08-10] MEDS ORDERED: HEPARIN SOD,PORK IN 0.45% NACL 25,000 UNIT in 0.45% NACL 1 250ML.BAG IV SCH (12:45)
[2019-08-10] MEDS: SODIUM CHLORIDE 0.9% 1,000 ML IV SCH (14:29)
[2019-08-10] MEDS ORDERED: FUROSEMIDE 20 MG TAB PO PRN (14:43)
[2019-08-10] MEDS: PREGABALIN 75 MG CAP PO SCH ×2 (15:16→22:03)
[2019-08-10] MEDS: BACLOFEN 10 MG TAB PO SCH ×2 (15:16→22:03)
[2019-08-10] MEDS: LISINOPRIL 20 MG TAB PO SCH (15:17)
[2019-08-10] MEDS: metFORMIN 500 MG TAB PO SCH (15:47)
--- NOTE | 2019-08-10 16:51 | P.CNPUL ---
History of Present Illness Consult date: 08/10/19 Reason for consult: dyspnea Chief complaint: Acute pulmonary embolism History of present illness: This is a 59-year-old white female patient of Dr. Eboni Schwartz with past medical history of chronic bronchial asthma of unknown type, diabetes mellitus type 2, hypertension, hyperlipidemia, fibromyalgia, osteoarthritis, patient has had previous orthopedic surgeries on her right hip and 2 hand surgeries, she is a former smoker. Denies any history of cancer. Patient presented to the emergency department today on 2018 with complaints of sudden onset of shortness of breath today. She does have some chronic mild dyspnea, but this was significantly worse, she denies any cough or congestion, denies any wheezi ng, denies any chest pain or any back discomfort. No swelling or pain in her legs. Chest x-ray in the emergency department showed no acute cardiopulmonary process, patient has been afebrile, her pulse ox was found to be at 90% on room air, and she was placed on supplemental oxygen. CBC was within normal limits, d-dimer came back elevated at 3.38, renal profile and electrolytes were unremarkable, troponin was negative 1, proBNP was 200, LFTs all within normal limits, CT angios chest was completed showing pulmonary emboli with filling defects involving segmental and subsegmental branches of all major pulmonary lobes and a nonocclusive embolus in the left main pulmonary artery. No CT evide nce of right heart strain. Hemodynamically patient is stable, she is maintaining stable oxygenation on 2 L, her pulse ox is 95%, she had been started on Lovenox 100 mg subcu every 12 hours in the emergency department, we were consulted for acute pulmonary embolism. Patient denies any previous history of DVTs or PEs, her mother did have a DVT when she had lung cancer. She denies any recent surgical procedures, other than having a small skin lesion removed from her left eyelid. She states she is fairly active and denies being sedentary. Review of Systems All systems: negative Constitutional: Denies chills, Denies fever Eyes: denies blurred vision, denies pain Ears, nose, mouth and throat: Denies headache, Denies sore throat Cardiovascular: Denies chest pain, Denies shortness of breath Respiratory: Reports dyspnea, Denies cough Gastrointestinal: Denies abdominal pain, Denies diarrhea, Denies nausea, Denies vomiting Genitourinary: Denies dysuria, Denies hematuria Musculoskeletal: Denies myalgias Integumentary: Denies pruritus, Denies rash Neurological: Denies numbness, Denies weakness Psychiatric: Denies anxiety, Denies depression Endocrine: Denies fatigue, Denies weight change Past Medical History Past Medical History: Asthma, Diabetes Mellitus, Fibromyalgia, Hyperlipidemia, Hypertension, Musculoskeletal Disorder, Osteoarthritis (OA) Additional Past Medical History / Comment(s): Rheumatic fever as a child History of Any Multi-Drug Resistant Organisms: MRSA Date of last positivie culture/infection: 2008 MDRO Source:: R foot Past Surgical History: Adenoidectomy, Bladder Surgery, Section, Cholecystectomy, Ear Surgery, Joint Replacement, Tonsillectomy Additional Past Surgical History / Comment(s): R hip replacement; 2 hand surgeries Past Anesthesia/Blood Transfusion Reactions: Previous Problems w/ Anesthesia, Family History of Problems w/ Anesthesia, Motion Sickness, Postoperative Nausea & Vomiting (PONV) Additional Past Anesthesia/Blood Transfusion Reaction / Comment(s): mother gets PONV Past Psychological History: Depression Smoking Status: Former smoker Past Alcohol Use History: None Reported Additional Past Alcohol Use History / Comment(s): smoked as teen to age 30 2 ppd Past Drug Use History: None Reported - Past Family History Father Family Medical History: Cancer Mother Family Medical History: Cancer Brother(s) Family Medical History: Cancer Medications and Allergies Home Medications Medication Instructions Recorded Confirmed Type Baclofen 10 mg PO TID 04/08/17 08/10/19 History Insulin Glargine,Hum.rec.anlog 110 units SQ HS 04/08/17 08/10/19 History [Toyaya Solostedilberto] Pregabalin [Lyrica] 75 mg PO TID 04/08/17 08/10/19 History Ramipril 10 mg PO BID 04/08/17 08/10/19 History Albuterol Inhaler [Ventolin Hfa 1 - 2 puff INHALATION RT-Q6H PRN 08/12/1708/10 History Inhaler] Fenofibrate Nanocrystallized 145 mg PO DAILY 08/12/17 08/10/19 History [Fenofibrate] Atenolol [Tenormin] 50 mg PO BID 11/17/18 08/10/19 History Furosemide [Lasix] 20 mg PO DAILY 08/10/19 08/10/19 History Hydrochlorothiazide 50 mg PO DAILY 08/10/19 08/10/19 History Insulin Aspart [NovoLOG Flexpen] 8 units SQ AC-BID PRN 08/10/19 08/10/19 History Montelukast Sodium [Singulair] 10 mg PO HS 08/10/19 08/10/19 History metFORMIN HCL [metFORMIN HCL ER] 2,000 mg PO DAILY@1600 08/10/19 08/10/19 History oxyCODONE HCL [oxyCODONE HCL (IR)] 30 mg PO Q6H PRN 08/10/19 08/10/19 History Allergies Allergy/AdvReac Type Severity Reaction Status Date / Time clavulanic acid Allergy Anaphylaxis Verified 08/10/19 12:58 [From Augmentin] fentanyl Allergy Anaphylaxis Verified 08/10/19 12:58 levofloxacin [From Levaquin] Allergy Anaphylaxis Verified 08/10/19 12:58 amoxicillin AdvReac doesn't Verified 08/10/19 12:58 work codeine AdvReac Abdominal Verified 08/10/19 12:58 Pain Physical Exam Vitals: Vital Signs Temp Pulse Pulse Resp BP BP Pulse Ox 08/10/19 14:15 97.8 F 65 18 161/63 95 08/10/19 13:16 61 18 147/64 96 08/10/19 11:53 18 159/79 08/10/19 09:57 97.9 F 83 18 165/78 90 L Intake and Output 08/10/19 08/10/19 08/10/19 06:59 14:59 22:59 Other: Weight 101.151 kg GENERAL EXAM: Alert, pleasant, 59-year-old white female, obese, on 2 L of oxygen with a pulse ox of 95% comfortable in no apparent distress. HEAD: Normocephalic/atraumatic. EYES: Normal reaction of pupils, equal size. Conjunctiva pink, sclera white. NOSE: Clear with pink turbinates. THROAT: No erythema or exudates. NECK: No masses, no JVD, no thyroid enlargement, no adenopathy. CHEST: No chest wall deformity. Symmetrical expansion. LUNGS: Equal air entry with no crackles, wheeze, rhonchi or dullness. CVS: Regular rate and rhythm, normal S1 and S2, no gallops, no murmurs, no rubs ABDOMEN: Soft, nontender. No hepatosplenomegaly, normal bowel sounds, no guarding or rigidity. EXTREMITIES: No clubbing, no edema, no cyanosis, 2+ pulses and upper and lower extremities. MUSCULOSKELETAL: Muscle strength and tone normal. SPINE: No scoliosis or deformity SKIN: No rashes CENTRAL NERVOUS SYSTEM: Alert and oriented -3. No focal deficits, tone is normal in all 4 extremities. PSYCHIATRIC: Alert and oriented -3. Appropriate affect. Intact judgment and insight. Results - Laboratory Findings CBC and BMP: 08/10/19 10:20 08/10/19 10:20 PT/INR, D-dimer PT 10.1 sec (9.0-12.0) 08/10/19 10:20 INR 0.9 (<1.2) 08/10/19 10:20 D-Dimer 3.38 mg/L FEU (<0.60) H 08/10/19 10:20 Abnormal lab findings: Abnormal Labs 08/10/19 08/10/19 10:20 10:20 D-Dimer 3.38 H BUN 25 H Creatinine 1.05 H Glucose 343 H - Diagnostic Findings Chest x-ray: report reviewed, image reviewed CT scan - chest: report reviewed, image reviewed Assessment and Plan Plan: Assessment: #1. Acute dyspnea related to acute pulmonary emboli involving segmental and subsegmental branches of all major pulmonary lobes and a nonocclusive embolus in the left main pulmonary artery. No CT evidence of right heart strain. Echocardiogram is pending #2. History of chronic bronchial asthma, unspecified, stable #3. Diabetes mellitus type 2 #4. Hypertension #5. Hyperlipidemia #6. Fibromyalgia #7. Previous history of MRSA infection in her right foot #8. Morbid obesity #9. Former smoker #10. Depression Plan: We'll switch the Lovenox injections to heparin infusion for next 24 hours, check coverage for Factor Xa inhibitor Eliquis or Xarelto. Hemodynamically stable, maintaining stable oxygenation, CT angios chest did not show evidence of right heart strain, we will obtain an echocardiogram. Asthma seems to be stable right now. We'll continue to follow. The pulmonary emboli seem to be unprovoked. I performed a history & physical examination of the patient and discussed their management with my nurse practitioner, Jeanette Quick. I reviewed the nurse practitioner's note and agree with the documented findings and plan of care. Lung sounds are positive for clear breath sounds. The findings and the impression was discussed with the patient. I attest to the documentation by the nurse practitioner. Time with Patient: Greater than 30
[2019-08-10] MEDS ORDERED: INSULIN ASPART 8 UNIT SQ PRN (17:00)
[2019-08-10 17:02] LABS: Glucose,Whole Blood 268 mg/dL (75-99)
[2019-08-10] MEDS ORDERED: metFORMIN 500 MG TAB PO SCH (17:30)
[2019-08-10] MEDS: HEPARIN SOD,PORK IN 0.45% NACL 25,000 UNIT in 0.45% NACL 1 250ML.BAG IV SCH (17:42)
[2019-08-10] MEDS: INSULIN ASPART (NovoLOG) 100 UNIT/ML VIAL SQ SCH ×2 (17:44→22:02)
[2019-08-10] MEDS: ALBUTEROL NEBULIZED 2.5 MG/3 ML INHALATION PRN (18:50)
[2019-08-10 20:35] LABS: Glucose,Whole Blood 254 mg/dL (75-99)
[2019-08-10] MEDS ORDERED: MONTELUKAST 10 MG TAB PO SCH (21:00)
[2019-08-10] MEDS ORDERED: INSULIN DETEMIR (LEVEMIR) 100 UNIT/ML SYR SQ SCH (21:00)
[2019-08-10] MEDS: ATENOLOL 50 MG TAB PO SCH (22:02)
--- NOTE | 2019-08-10 23:14 | P.HPIM ---
History of Present Illness H&P Date: 08/10/19 Chief Complaint: Short of breath History of presenting complaint: This is a pleasant 59-year-old patient of Dr. Eboni Schwartz. Chronic stable medical conditions include asthma, diabetes, fibromyalgia, hypertension, hyperlipidemia, [place] arthritis. Patient has been short of breath "a while. Patient had taken her grandson for a checkup. She felt dizzy and became far m ore short of breath. Often it has been feeling tired specially for last couple of days. This is to present to the ER. Patient's found to have bilateral pulmonary embolism. Started on IV heparin. Denies any recent cough swelling. Or evidence of any increased and activity. No prior history of DVTs. Review of systems: GEN.: Tired EYES: None HEENT: None NECK: None RESPIRATORY: Short of breath CARDIOVASCULAR: None GASTROINTESTINAL: None GENITOURINARY: None MUSCULOSKELETAL: Joint pains LYMPHATICS: None HEMATOLOGICAL: None PSYCHIATRY: None NEUROLOGICAL: None Social history: Patient smoked for about 40 years stopped about 30 years ago. Did 2 packs a day. . Physical examination: VITAL SIGNS: 97.9, 83, 18, 165/78, 90% on room air] GENERAL: BMI 43.6, sitting up in bed not in distress. EYES: Pupils equal. Conjunctiva normal. HEENT: External appearance of nose and ears normal, oral cavity grossly normal. NECK: JVD not raised; masses not palpable. HEART: First and second heart sounds are normal; no edema. LUNGS: Respiratory rate increased,; decreased breath sound. ABDOMEN: Soft, nontender, liver spleen not palpable, no masses palpable. PSYCH: Alert and oriented x3; mood and affect normal. NEUROLOGICAL: Cranial nerves grossly intact; no facial asymmetry, power and sensation grossly intact. LYMPHATICS: No lymph nodes palpable in the axilla and neck INVESTIGATIONS, reviewed in the clinical context: White count 6.8 hemoglobin 12 platelets 161 progression 4.1 bun 25 creatinine 1.05 Accu-Cheks 343, 260, 254 Troponin I less than 0.012 EKG tracing personally reviewed by me-old sinus rhythm Chest x-ray film personally reviewed by me-lung dahl clear CT chest-pulmonary embolism Assessment: -Acute non-provoked bilateral pulmonary embolisms, with no evidence of right ventricular strain -Diabetes mellitus type 2 -Chronic fibromyalgia -Hyperlipidemia -Essential hypertension -Primary osteoarthritis -Morbid obesity BMI 43.6 -IV heparin monitoring Plan: Patient started and IV heparin. Home medications resumed. Care was discussed in detail with the patient. Hopefully patient was switched over to orals her new or anticoagulants tomorrow. We'll check with insurance coverage. Pulmonary was consulted. Past Medical History Past Medical History: Asthma, Diabetes Mellitus, Fibromyalgia, Hyperlipidemia, Hypertension, Musculoskeletal Disorder, Osteoarthritis (OA) Additional Past Medical History / Comment(s): Rheumatic fever as a child History of Any Multi-Drug Resistant Organisms: MRSA Date of last positivie culture/infection: 2008 MDRO Source:: R foot Past Surgical History: Adenoidectomy, Bladder Surgery, Section, Cholecystectomy, Ear Surgery, Joint Replacement, Tonsillectomy Additional Past Surgical History / Comment(s): R hip replacement; 2 hand surgeries Past Anesthesia/Blood Transfusion Reactions: Previous Problems w/ Anesthesia, Family History of Problems w/ Anesthesia, Motion Sickness, Postoperative Nausea & Vomiting (PONV) Additional Past Anesthesia/Blood Transfusion Reaction / Comment(s): mother gets PONV Past Psychological History: Depression Smoking Status: Former smoker Past Alcohol Use History: None Reported Additional Past Alcohol Use History / Comment(s): smoked as teen to age 30 2 ppd Past Drug Use History: None Reported - Past Family History Father Family Medical History: Cancer Mother Family Medical History: Cancer Brother(s) Family Medical History: Cancer Medications and Allergies Home Medications Medication Instructions Recorded Confirmed Type Baclofen 10 mg PO TID 04/08/17 08/10/19 History Insulin Glargine,Hum.rec.anlog 110 units SQ HS 04/08/17 08/10/19 History [Toujeronny Solostar] Pregabalin [Lyrica] 75 mg PO TID 04/08/17 08/10/19 History Ramipril 10 mg PO BID 04/08/17 08/10/19 History Albuterol Inhaler [Ventolin Hfa 1 - 2 puff INHALATION RT-Q6H PRN 08/12/17 08/10/19 History Inhaler] Fenofibrate Nanocrystallized 145 mg PO DAILY 08/12/17 08/10/19 History [Fenofibrate] Atenolol [Tenormin] 50 mg PO BID 11/17/18 08/10/19 History Furosemide [Lasix] 20 mg PO DAILY 08/10/19 08/10/19 History Hydrochlorothiazide 50 mg PO DAILY 08/10/19 08/10/19 History Insulin Aspart [NovoLOG Flexpen] 8 units SQ AC-BID PRN 08/10/19 08/10/19 History Montelukast Sodium [Singulair] 10 mg PO HS 08/10/19 08/10/19 History metFORMIN HCL [metFORMIN HCL ER] 2,000 mg PO DAILY@1600 08/10/19 08/10/19 History oxyCODONE HCL [oxyCODONE HCL (IR)] 30 mg PO Q6H PRN 08/10/19 08/10/19 History Allergies Allergy/AdvReac Type Severity Reaction Status Date / Time clavulanic acid Allergy Anaphylaxis Verified 08/10/19 12:58 [From Augmentin] fentanyl Allergy Anaphylaxis Verified 08/10/19 12:58 levofloxacin [From Levaquin] Allergy Anaphylaxis Verified 08/10/19 12:58 amoxicillin AdvReac doesn't Verified 08/10/19 12:58 work codeine AdvReac Abdominal Verified 08/10/19 12:58 Pain Physical Exam Vitals: Vital Signs Temp Pulse Pulse Resp BP BP Pulse Ox 08/10/19 20:00 96.7 F L 63 18 150/74 92 L 08/10/19 19:01 62 08/10/19 18:52 60 97 08/10/19 14:15 97.8 F 65 18 161/63 95 08/10/19 13:16 61 18 147/64 96 08/10/19 11:53 18 159/79 08/10/19 09:57 97.9 F 83 18 165/78 90 L Intake and Output 08/10/19 08/10/19 08/11/19 14:59 22:59 06:59 Intake Total 300 Balance 300 Intake: Oral 300 Other: Voiding Method Toilet Weight 101.151 kg Results CBC & Chem 7: 08/10/19 10:20 08/10/19 10:20 Labs: Abnormal Lab Results - Last 24 Hours (Table) 08/10/19 08/10/19 08/10/19 Range/Units 10:20 10:20 17:01 D-Dimer 3.38 H (<0.60) mg/L FEU BUN 25 H (7-17) mg/dL Creatinine 1.05 H (0.52-1.04) mg/dL Glucose 343 H (74-99) mg/dL POC Glucose (mg/dL) 268 H (75-99) mg/dL 08/10/19 Range/Units 20:33 D-Dimer (<0.60) mg/L FEU BUN (7-17) mg/dL Creatinine (0.52-1.04) mg/dL Glucose (74-99) mg/dL POC Glucose (mg/dL) 254 H (75-99) mg/dL Thrombosis Risk Factor Assmnt - Choose All That Apply Each Factor Represents 1 point: Age 41-60 years, Obesity (BMI >25) Each Risk Factor Represents 3 Points: History of DVT/PE Thrombosis Risk Factor Assessment Total Risk Factor Score: 5 Thrombosis Risk Factor Assessment Level: High Risk
[2019-08-11 01:04] LABS: Glucose,Whole Blood 237 mg/dL (75-99)
[2019-08-11] MEDS ORDERED: ENOXAPARIN 100 MG/ML SYRINGE SQ SCH (06:00)
[2019-08-11 06:11] LABS: Glucose,Whole Blood 291 mg/dL (75-99)
[2019-08-11] MEDS: LISINOPRIL 20 MG TAB PO SCH ×2 (06:49→09:10)
[2019-08-11] MEDS: INSULIN ASPART (NovoLOG) 100 UNIT/ML VIAL SQ SCH ×2 (06:55→12:23)
[2019-08-11] MEDS: HEPARIN SOD,PORK IN 0.45% NACL 25,000 UNIT in 0.45% NACL 1 250ML.BAG IV SCH (07:02)
[2019-08-11 07:03] LABS: Basophils % (A) 0 %; Eosinophils # (A) 0.1 k/uL (0-0.7); Eosinophils % (A) 2 %; HCT 37.2 % (34.0-46.0); HGB 11.6 gm/dL (11.4-16.0); Lymphocytes # (A) 2.6 k/uL (1.0-4.8); Lymphocytes % (A) 33 %; MCH 27.2 pg (25.0-35.0); MCHC 31.1 g/dL (31.0-37.0); MCV 87.4 fL (80.0-100.0); Mean Platelet Volume 8.1; Monocytes # (A) 0.4 k/uL (0-1.0); Monocytes % (A) 5 %; Neutrophils # (A) 4.5 k/uL (1.3-7.7); Neutrophils % (A) 58 %; Platelet Count 200 k/uL (150-450); RBC 4.25 m/uL (3.80-5.40); WBC 7.8 k/uL (3.8-10.6)
[2019-08-11] MEDS: ALBUTEROL NEBULIZED 2.5 MG/3 ML INHALATION PRN (07:29)
[2019-08-11] MEDS ORDERED: HYDROCHLOROTHIAZIDE 50 MG TAB PO SCH (09:00)
[2019-08-11] MEDS ORDERED: FENOFIBRATE 160 MG TAB PO SCH (09:00)
[2019-08-11] MEDS: ATENOLOL 50 MG TAB PO SCH (09:09)
[2019-08-11] MEDS: BACLOFEN 10 MG TAB PO SCH (09:09)
[2019-08-11] MEDS: PREGABALIN 75 MG CAP PO SCH (09:10)
[2019-08-11] MEDS: metFORMIN 500 MG TAB PO SCH (09:22)
--- NOTE | 2019-08-11 10:44 | ECHOF ---
Referral Reason:pulm embolism MEASUREMENTS -------- HEIGHT: 152.4 cm WEIGHT: 101.2 kg BP: RVIDd: 3.5 cm (< 3.3) IVSd: 0.8 cm (0.6 - 1.1) LVIDd: 5.6 cm (3.9 - 5.3) LVPWd: 1.2 cm (0.6 - 1.1) IVSs: 1.5 cm LVIDs: 4.5 cm LVPWs: 1.2 cm Ao Diam: 3.1 cm (2.0 - 3.7) AV Cusp: 1.8 cm (1.5 - 2.6) LA Diam: 3.5 cm (2.7 - 3.8) MV EXCURSION: 16.594 mm (> 18.000) MV EF SLOPE: 71 mm/s (70 - 150) EPSS: 1.2 cm MV E Bill: 0.50 m/s MV DecT: 119 ms MV A Bill: 0.51 m/s MV E/A Ratio: 0.97 RAP: 5.00 mmHg RVSP: 15.85 mmHg TAPSE: 27.66 mm FINDINGS -------- Sinus rhythm. This was a technically difficult study with suboptimal views. Pt sitting up can't breathe lying down. The left ventricle is mildly dilated. Left ventricular wall thickness is normal. Overall left paul tricular systolic function is low-normal with, an EF between 50 - 55 %. The right ventricle is mildly enlarged. The left atrial size is normal. The right atrial size is normal. The aortic valve is trileaflet and appears structurally normal. The mitral valve is normal. There is trace mitral regurgitation. The tricuspid valve appears structurally normal. Mild tricuspid regurgitation present. Right vent ricular systolic pressure is normal at < 35 mmHg. There is no pulmonic regurgitation present. The aortic root size is normal. The inferior vena cava was not well visualized. There is a small, generalized pericardial effusion present. CONCLUSIONS -------- 1. Sinus rhythm. 2. This was a technically difficult study with suboptimal views. Pt sitting up can't breathe lying do wn. 3. Left ventricular wall thickness is normal. 4. The left atrial size is normal. 5. The right atrial size is normal. 6. The aortic valve is trileaflet and appears structurally normal. 7. The mitral valve is normal. 8. The tricuspid valve appears structurally normal. 9. Mild tricuspid regurgitation present. 10. Right ventricular systolic pressure is normal at < 35 mmHg. 11. There is no pulmonic regurgitation present. 12. The aortic root size is normal. 13. The septum is hypokinetic LANDING SCALER: Joleen Clay RDCS
[2019-08-11] MEDS ORDERED: APIXABAN 5 MG TAB PO SCH (11:00)
[2019-08-11 11:30] VITALS: PULSE 62
[2019-08-11 12:02] VITALS: BP 159/82; TEMP 98.2
[2019-08-11 12:07] LABS: Glucose,Whole Blood 278 mg/dL (75-99)
[2019-08-11] MEDS: SODIUM CHLORIDE 0.9% 1,000 ML IV SCH (12:29)
--- NOTE | 2019-08-11 12:34 | P.PN ---
Subjective Progress Note Date: 08/11/19 Principal diagnosis: Acute pulmonary emboli This is a 59-year-old white female patient of Dr. Eboni Schwartz with past medical history of chronic bronchial asthma of unknown type, diabetes mellitus type 2, hypertension, hyperlipidemia, fibromyalgia, osteoarthritis, patient has had previous orthopedic surgeries on her right hip and 2 hand surgeries, she is a former smoker. Denies any history of cancer. Patient presented to the emergency department today on 2018 with complaints of sudden onset of shortness of breath today. She does have some chronic mild dyspnea, but this was significantly worse, she denies any cough or congestion, denies any wheezing, denies any chest pain or any back discomfort. No swelling or pain in her legs. Chest x-ray in the emergency department showed no acute cardiopulmonary process, patient has been afebrile, her pulse ox was found to be at 90% on room air, and she was placed on supplemental oxygen. CBC was within normal limits, d-dimer came back elevated at 3.38, renal profile and electrolytes were unremarkable, troponin was negative 1, proBNP was 200, LFTs all within normal limits, CT angios chest was completed showing pulmonary emboli with filling defects involving segmental and subsegmental branches of all major pulmonary lobes and a nonocclusive embolus in the left main pulmonary artery. No CT evidence of right heart strain. Hemodynamically patient is stable, she is maintaining stable oxygenation on 2 L, her pulse ox is 95%, she had been started on Lovenox 100 mg subcu every 12 hours in the emergency department, we were consulted for acute pulmonary embolism. Patient denies any previous history of DVTs or PEs, her mother did have a DVT when she had lung cancer. She denies any recent surgical procedures, other than having a small skin lesion removed from her left eyelid. She states she is fairly active and denies being sedentary. On 08/11/2019 patient seen in follow-up on selective care unit, she is awake and alert, oriented 3, in no acute distress, denies any respiratory difficulty, denies any chest pain or hemoptysis, vital signs are stable, her pulse ox is 94% on room air, hemodynamically stable, no coughing or wheezing, her asthma is stable at this time, she remains on heparin infusion for acute pulmonary emboli in bilateral lungs. Echocardiogram has been completed showing EF between 50 and 55%, trace mitral regurg, mild tricuspid regurg, no pulmonary hypertension, and the small generalized pericardial effusion. Clinically stable, patient has been approved for Eliquis and will be transitioned to oral anticoagulation today. Objective - Vital Signs Vital signs: Vital Signs Temp 98.2 F 08/11/19 11:53 Pulse 62 08/11/19 11:53 Resp 18 08/11/19 11:53 BP 159/82 08/11/19 11:53 Pulse Ox 94 L 08/11/19 11:53 Intake & Output 08/10/19 08/11/19 08/11/19 18:59 06:59 18:59 Intake Total 240 191.697 458.722 Balance 240 191.697 458.722 Weight 101.151 kg 99.2 kg Intake: Intake, IV Titration 131.697 98.722 Amount Heparin Sod,Pork in 0.45% 131.697 98.722 NaCl 25,000 unit In 0.45 % NaCl 1 250ml.bag @ 18 UNITS/KG/HR 18.207 mls/hr IV .[id number] [facility] Rx#: [id number] Oral 240 60 360 Other: Voiding Method Toilet Toilet # Voids 1 2 - Exam GENERAL EXAM: Alert, pleasant, 59-year-old white female, obese, on room air with a pulse ox of 94% comfortable in no apparent distress. HEAD: Normocephalic/atraumatic. EYES: Normal reaction of pupils, equal size. Conjunctiva pink, sclera white. NOSE: Clear with pink turbinates. THROAT: No erythema or exudates. NECK: No masses, no JVD, no thyroid enlargement, no adenopathy. CHEST: No chest wall deformity. Symmetrical expansion. LUNGS: Equal air entry with no crackles, wheeze, rhonchi or dullness. CVS: Regular rate and rhythm, normal S1 and S2, no gallops, no murmurs, no rubs ABDOMEN: Soft, nontender. No hepatosplenomegaly, normal bowel sounds, no guarding or rigidity. EXTREMITIES: No clubbing, no edema, no cyanosis, 2+ pulses and upper and lower extremities. MUSCULOSKELETAL: Muscle strength and tone normal. SPINE: No scoliosis or deformity SKIN: No rashes CENTRAL NERVOUS SYSTEM: Alert and oriented -3. No focal deficits, tone is normal in all 4 extremities. PSYCHIATRIC: Alert and oriented -3. Appropriate affect. Intact judgment and insight. - Labs CBC & Chem 7: 08/11/19 06:44 08/10/19 10:20 Labs: Abnormal Lab Results - Last 24 Hours (Table) 08/10/19 08/10/19 08/11/19 Range/Units 17:01 20:33 00:21 APTT 92.5 H (22.0-30.0) sec POC Glucose (mg/dL) 268 H 254 H (75-99) mg/dL 08/11/19 08/11/19 08/11/19 Range/Units 01:01 06:09 06:44 APTT 54.3 H (22.0-30.0) sec POC Glucose (mg/dL) 237 H 291 H (75-99) mg/dL 08/11/19 Range/Units 11:40 APTT (22.0-30.0) sec POC Glucose (mg/dL) 278 H (75-99) mg/dL Assessment and Plan Plan: Assessment: #1. Acute dyspnea related to acute pulmonary emboli involving segmental and subsegmental branches of all major pulmonary lobes and a nonocclusive embolus in the left main pulmonary artery. No CT evidence of right heart strain. Echocardiogram is pending #2. History of chronic bronchial asthma, unspecified, stable #3. Diabetes mellitus type 2 #4. Hypertension #5. Hyperlipidemia #6. Fibromyalgia #7. Previous history of MRSA infection in her right foot #8. Morbid obesity #9. Former smoker #10. Depression Plan: Echocardiogram results have been reviewed, patient is hemodynamically stable, no acute events overnight, no shortness of breath, no chest pain, no hemoptysis, room air pulse ox 94%, she has been approved for Eliquis and will be transitioned over to oral anticoagulation today, from pulmonary perspective patient is stable for discharge home today. Follow-up with Dr. Dwyer in the office in one or 2 weeks I performed a history & physical examination of the patient and discussed their management with my nurse practitioner, Jeanette Quick. I reviewed the nurse pr actitioner's note and agree with the documented findings and plan of care. Lung sounds are positive for clear breath sounds. The findings and the impression was discussed with the patient. I attest to the documentation by the nurse practitioner. Time with Patient: Less than 30
--- NOTE | 2019-08-14 14:44 | P.DS ---
Providers Date of admission: 08/10/19 12:52 Expected date of discharge: 08/11/19 Attending physician: Sarabjit Ulrich Consults: 08/10/19 12:44 Consult Physician Urgent Consulting Provider: Robyn Hughes Consult Reason/Comments: pe Do you want consulting provider notified?: Yes Primary care physician: Bassem Schwartz [facility] Course: Chief Complaint: Short of breath Hospital course: This is a pleasant 59-year-old patient of Dr. Eboni Schwartz. Chronic stable medical conditions include asthma, diabetes, fibromyalgia, hypertension, hyperlipidemia, osteoarthritis. Patient has been short of breath "a while. Patient had taken her grandson for a checkup. She felt dizzy and became far more short of breath. Often it has been feeling tired specially for last couple of days. Came to the ER. Patient's found to have bilateral pulmonary embolism. Started on IV heparin. Denies any recent cough swelling. Or evidence of any increased and activity. No prior history of DVTs. Symptoms greatly improved before discharge. 2-D echo did not reveal any right ventricular strain. Patient's wish total eliquis. Educated that she'll be requiring at least 6 months of anticoagulation Discussion and discharge planning more than 35 minutes Pens And Pencils Dipper: Dr. Hughes from pulmonary Physical examination: VITAL SIGNS: 98.2, 62, 16, 159/82, 94% room air GENERAL: BMI 43.6, sitting up in bed not in distress. EYES: Pupils equal. Conjunctiva normal. HEENT: External appearance of nose and ears normal, oral cavity grossly normal. NECK: JVD not raised; masses not palpable. HEART: First and second heart sounds are normal; no edema. LUNGS: Respiratory rate normal,; decreased breath sound. ABDOMEN: Soft, nontender, liver spleen not palpable, no masses palpable. PSYCH: Alert and oriented x3; mood and affect normal. INVESTIGATIONS, reviewed in the clinical context: White count 7.8 hemoglobin 11.6 platelet is 200 Previous testing White count 6.8 hemoglobin 12 platelets 161 progression 4.1 bun 25 creatinine 1.05 Accu-Cheks 343, 260, 254 Troponin I less than 0.012 EKG tracing personally reviewed by me-old sinus rhythm Chest x-ray film personally reviewed by me-lung dahl clear CT chest-pulmonary embolism Assessment: -Acute non-provoked bilateral pulmonary embolisms, with no evidence of right ventricular strain -Diabetes mellitus type 2, chronically on insulin -Chronic fibromyalgia -Hyperlipidemia -Essential hypertension -Primary osteoarthritis -Morbid obesity BMI 43.6 -IV heparin monitoring Disposition: Home Patient Condition at Discharge: Stable Plan - Discharge Summary Discharge Rx Participant: No New Discharge Prescriptions: New Apixaban [Eliquis Starter Pack (for VTE)] 0 mg PO DIRECTED 30 Days #1 pack Continue Pregabalin [Lyrica] 75 mg PO TID Baclofen 10 mg PO TID Insulin Glargine,Hum.rec.anlog [Toujeo Solostar] 110 units SQ HS Ramipril 10 mg PO BID Fenofibrate Nanocrystallized [Fenofibrate] 145 mg PO DAILY Albuterol Inhaler [Ventolin Hfa Inhaler] 1 - 2 puff INHALATION RT-Q6H PRN PRN Reason: Dyspnea Atenolol [Tenormin] 50 mg PO BID metFORMIN HCL [metFORMIN HCL ER] 2,000 mg PO DAILY@1600 Montelukast Sodium [Singulair] 10 mg PO HS Furosemide [Lasix] 20 mg PO DAILY Hydrochlorothiazide 50 mg PO DAILY Insulin Aspart [NovoLOG Flexpen] 8 units SQ AC-BID PRN PRN Reason: Blood Sugar - High oxyCODONE HCL [oxyCODONE HCL (IR)] 30 mg PO Q6H PRN PRN Reason: Pain Discharge Medication List Baclofen 10 mg PO TID 04/08/17 [History] Insulin Glargine,Hum.rec.anlog [Toujeo Solostar] 110 units SQ HS 04/08/17 [History] Pregabalin [Lyrica] 75 mg PO TID 04/08/17 [History] Ramipril 10 mg PO BID 04/08/17 [History] Albuterol Inhaler [Ventolin Hfa Inhaler] 1 - 2 puff INHALATION RT-Q6H PRN 08/12/17 [History] Fenofibrate Nanocrystallized [Fenofibrate] 145 mg PO DAILY 08/12/17 [History] Atenolol [Tenormin] 50 mg PO BID 11/17/18 [History] Furosemide [Lasix] 20 mg PO DAILY 08/10/19 [History] Hydrochlorothiazide 50 mg PO DAILY 08/10/19 [History] Insulin Aspart [NovoLOG Flexpen] 8 units SQ AC-BID PRN 08/10/19 [History] Montelukast Sodium [Singulair] 10 mg PO HS 08/10/19 [History] metFORMIN HCL [metFORMIN HCL ER] 2,000 mg PO DAILY@1600 08/10/19 [History] oxyCODONE HCL [oxyCODONE HCL (IR)] 30 mg PO Q6H PRN 08/10/19 [History] Apixaban [Eliquis Starter Pack (for VTE)] 0 mg PO DIRECTED 30 Days #1 pack 08/11/19 [Rx] Follow up Appointment(s)/Referral(s): Robyn Hughes MD [STAFF PHYSICIAN] - 08/27/19 9:00 am ([employer].) Bassem Schwartz DO [Primary Care Provider] - 08/13/19 8:30 am Patient Instructions/Handouts: Pulmonary Embolism (DC), Safe Use of Anticoagulants (DC) Discharge Disposition: HOME SELF-CARE
== END 2019-08-11 13:57 | disposition home or self-care (01) ==
LOC: EC 09:51 → 3SCARD 12:52
PROVIDERS: ADMIT Hospitalist; ATTEND Hospitalist
DX: I26.99 Other pulmonary embolism without acute cor pulmonale (principal); E11.9 Type 2 diabetes mellitus without complications; E66.01 Morbid (severe) obesity due to excess calories; E78.5 Hyperlipidemia, unspecified; F32.9 Major depressive disorder, single episode, unspecified; I10 Essential (primary) hypertension; J45.909 Unspecified asthma, uncomplicated; M19.91 Primary osteoarthritis, unspecified site; M79.7 Fibromyalgia; Z68.41 Body mass index [BMI] 40.0-44.9, adult; Z79.4 Long term (current) use of insulin; Z79.899 Other long term (current) drug therapy; Z86.14 Personal history of Methicillin resistant Staphylococcus aureus infection; Z86.19 Personal history of other infectious and parasitic diseases; Z87.891 Personal history of nicotine dependence; Z96.641 Presence of right artificial hip joint; Z88.1 Allergy status to other antibiotic agents; Z88.5 Allergy status to narcotic agent; Z88.8 Allergy status to other drugs, medicaments and biological substances; Z16.24 Resistance to multiple antibiotics; Z90.49 Acquired absence of other specified parts of digestive tract
CPT/HCPCS: 96376; 96365; 96366 ×2; 96372; 99291; 36415; 94640 ×2; 94760; 93005; 93306; 85379; 83880; 80053; 82550; 84484; 85025 ×2; 85610; 85730 ×2; 71046; 71275; G0378 ×2; J1644 ×3; J1650; Q9967

== ENCOUNTER 2019-09-28 00:07 | Emergency (ER) | payer BC ==
--- NOTE | 2019-09-28 00:10 | ED ---
Recheck HPI - General Stated Complaint: Hypoglycemic Time Seen by Provider: 09/28/19 00:10 Source: RN notes reviewed, old records reviewed Limitations: altered mental status - History of Present Illness Initial Comments: This is a 59-year-old female here for evaluation patient is very weak currently. Patient is here for unresponsive event, called EMS EMS presented patient from low blood sugar as well as patient being responsible of breathing appropriately, patient was arousable with some sugar injected, patient at this time states she feels weak states she's been feeling weak for about a month. MD Complaint: abnormal lab (Low blood glucose) -: unknown Returns Today for: other (EMS brings patient in secondary to unresponsive event, called by ) Symptoms Since Prior Visit: no new symptoms Associated Symptoms: fever, chills, malaise, nausea - Related Data Home Medications Medication Instructions Recorded Confirmed Baclofen 10 mg PO TID 04/08/17 08/10/19 Insulin Glargine,Hum.rec.anlog 110 units SQ HS 04/08/17 08/10/19 [[place]] Pregabalin [Lyrica] 75 mg PO TID 04/08/17 08/10/19 Ramipril 10 mg PO BID 04/08/17 08/10/19 Albuterol Inhaler [Ventolin Hfa 1 - 2 puff INHALATION RT-Q6H PRN 08/12/1710/28 Inhaler] Fenofibrate Nanocrystallized 145 mg PO DAILY 08/12/17 08/10/19 [Fenofibrate] Atenolol [Tenormin] 50 mg PO BID 11/17/18 08/10/19 Furosemide [Lasix] 20 mg PO DAILY 08/10/19 08/10/19 Hydrochlorothiazide 50 mg PO DAILY 08/10/19 08/10/19 Insulin Aspart [NovoLOG Flexpen] 8 units SQ AC-BID PRN 08/10/19 08/10/19 Montelukast Sodium [Singulair] 10 mg PO HS 08/10/19 08/10/19 metFORMIN HCL [metFORMIN HCL ER] 2,000 mg PO DAILY@1600 08/10/19 08/10/19 oxyCODONE HCL [oxyCODONE HCL (IR)] 30 mg PO Q6H PRN 08/10/19 08/10/19 Previous Rx's Medication Instructions Recorded Apixaban [Eliquis Starter Pack 0 mg PO DIRECTED 30 Days #1 pack 08/11/19 (for VTE)] Allergies Allergy/AdvReac Type Severity Reaction Status Date / Time clavulanic acid Allergy Anaphylaxis Verified 09/28/19 00:17 [From Augmentin] fentanyl Allergy Anaphylaxis Verified 09/28/19 00:17 levofloxacin [From Levaquin] Allergy Anaphylaxis Verified 09/28/19 00:17 amoxicillin AdvReac doesn't Verified 09/28/19 00:17 work codeine AdvReac Abdominal Verified 09/28/19 00:17 Pain Review of Systems ROS Statement: Those systems with pertinent positive or pertinent negative responses have been documented in the HPI. ROS Other: All systems not noted in ROS Statement are negative. Past Medical History Past Medical History: Asthma, Diabetes Mellitus, Fibromyalgia, Hyperlipidemia, Hypertension, Musculoskeletal Disorder, Osteoarthritis (OA) Additional Past Medical History / Comment(s): Rheumatic fever as a child History of Any Multi-Drug Resistant Organisms: MRSA Date of last positivie culture/infection: 2008 MDRO Source:: R foot Past Surgical History: Adenoidectomy, Bladder Surgery, Section, Cholecystectomy, Ear Surgery, Joint Replacement, Tonsillectomy Additional Past Surgical History / Comment(s): R hip replacement; 2 hand surgeries Past Anesthesia/Blood Transfusion Reactions: Previous Problems w/ Anesthesia, Family History of Problems w/ Anesthesia, Motion Sickness, Postoperative Nausea & Vomiting (PONV) Additional Past Anesthesia/Blood Transfusion Reaction / Comment(s): mother gets PONV Past Psychological History: Depression Smoking Status: Former smoker Past Alcohol Use History: None Reported Additional Past Alcohol Use History / Comment(s): smoked as teen to age 30 2 ppd Past Drug Use History: None Reported - Past Family History Father Family Medical History: Cancer Mother Family Medical History: Cancer Brother(s) Family Medical History: Cancer General Exam General appearance: alert, in no apparent distress Head exam: Present: atraumatic, normocephalic, normal inspection Eye exam: Present: normal appearance, PERRL, EOMI. Absent: scleral icterus, conjunctival injection, periorbital swelling ENT exam: Present: normal exam, mucous membranes moist Neck exam: Present: normal inspection. Absent: tenderness, meningismus, lymphadenopathy Respiratory exam: Present: normal lung sounds bilaterally. Absent: respiratory distress, wheezes, rales, rhonchi, stridor Cardiovascular Exam: Present: regular rate, normal rhythm, normal heart sounds. Absent: systolic murmur, diastolic murmur, rubs, gallop, clicks GI/Abdominal exam: Present: soft, normal bowel sounds. Absent: distended, tenderness, guarding, rebound, rigid Extremities exam: Present: normal inspection, full ROM, normal capillary refill. Absent: tenderness, pedal edema, joint swelling, calf tenderness Back exam: Present: normal inspection Neurological exam: Present: alert, oriented X3, CN II-XII intact Psychiatric exam: Present: normal affect, normal mood Skin exam: Present: warm, dry, intact, normal color. Absent: rash Course Vital Signs 09/28/19 09/28/19 09/28/19 00:10 00:21 00:26 Temperature 94.1 F L Pulse Rate 63 Pulse Rate [ 67 Apical] Respiratory 16 Rate Blood Pressure 127/61 O2 Sat by Pulse 96 Oximetry 09/28/19 09/28/19 09/28/19 00:58 02:44 03:08 Temperature 97.6 F 97.5 F L Pulse Rate 61 54 L 58 L Pulse Rate [ Apical] Respiratory 15 15 Rate Blood Pressure 120/58 138/64 O2 Sat by Pulse 92 L 93 L Oximetry - Reevaluation(s) Reevaluation #1: 09/28/19 01:01 Medical records reviewed Reevaluation #2: 09/28/19 03:18 No significant acute findings here in the ER Medical Decision Making - Medical Decision Making 59 female to the ER for evaluation patient not feeling well for arrival. Patient's blood sugar significantly low. That is improved upon arrival. Patient is otherwise asymptomatic asking to be discharged home. Patient is awake and alert and can be discharged home and is capable of making medical decisions - Lab Data Result diagrams: 09/28/19 00:40 09/28/19 00:40 Lab Results 09/28/19 09/28/19 09/28/19 Range/Units 00:24 00:40 00:40 WBC 5.4 (3.8-10.6) k/uL RBC 4.63 (3.80-5.40) m/uL Hgb 13.0 (11.4-16.0) gm/dL Hct 38.7 (34.0-46.0) % MCV 83.6 (80.0-100.0) fL MCH 28.0 (25.0-35.0) pg MCHC 33.5 (31.0-37.0) g/dL RDW 14.6 (11.5-15.5) % Plt Count 152 (150-450) k/uL Neutrophils % (Manual) 79 % Band Neutrophils % 2 % Lymphocytes % (Manual) 12 % Monocytes % (Manual) 7 % Neutrophils # (Manual) 4.30 (1.3-7.7) k/uL Lymphocytes # (Manual) 0.65 L (1.0-4.8) k/uL Monocytes # (Manual) 0.38 (0-1.0) k/uL Nucleated RBCs 0 (0-0) /100 WBC Manual Slide Review Performed PT (9.0-12.0) sec INR (<1.2) APTT (22.0-30.0) sec Sodium 140 (137-145) mmol/L Potassium 5.4 H (3.5-5.1) mmol/L Chloride 100 (98-107) mmol/L Carbon Dioxide 33 H (22-30) mmol/L Anion Gap 7 mmol/L BUN 26 H (7-17) mg/dL Creatinine 1.08 H (0.52-1.04) mg/dL Est GFR (CKD-EPI)AfAm 66 (>60 ml/min/1.73 sqM) Est GFR (CKD-EPI)NonAf 57 (>60 ml/min/1.73 sqM) Glucose 60 L (74-99) mg/dL POC Glucose (mg/dL) 66 L (75-99) mg/dL POC Glu Legend Maker ID Tyshawn, Brandi Plasma Lactic Acid Deni (0.7-2.0) mmol/L Calcium 10.0 (8.4-10.2) mg/dL Phosphorus 3.5 (2.5-4.5) mg/dL Magnesium 2.3 (1.6-2.3) mg/dL Total Bilirubin 1.2 (0.2-1.3) mg/dL AST 76 H (14-36) U/L ALT 35 H (4-34) U/L Alkaline Phosphatase 68 (38-126) U/L Creatine Kinase 78 (30-135) U/L Troponin I (0.000-0.034) ng/mL Total Protein 8.0 (6.3-8.2) g/dL Albumin 4.6 (3.5-5.0) g/dL 09/28/19 09/28/19 09/28/19 Range/Units 00:40 00:40 00:40 WBC (3.8-10.6) k/uL RBC (3.80-5.40) m/uL Hgb (11.4-16.0) gm/dL Hct (34.0-46.0) % MCV (80.0-100.0) fL MCH (25.0-35.0) pg MCHC (31.0-37.0) g/dL RDW (11.5-15.5) % Plt Count (150-450) k/uL Neutrophils % (Manual) % Band Neutrophils % % Lymphocytes % (Manual) % Monocytes % (Manual) % Neutrophils # (Manual) (1.3-7.7) k/uL Lymphocytes # (Manual) (1.0-4.8) k/uL Monocytes # (Manual) (0-1.0) k/uL Nucleated RBCs (0-0) /100 WBC Manual Slide Review PT 10.0 (9.0-12.0) sec INR 1.0 (<1.2) APTT 23.1 (22.0-30.0) sec Sodium (137-145) mmol/L Potassium (3.5-5.1) mmol/L Chloride (98-107) mmol/L Carbon Dioxide (22-30) mmol/L Anion Gap mmol/L BUN (7-17) mg/dL Creatinine (0.52-1.04) mg/dL Est GFR (CKD-EPI)AfAm (>60 ml/min/1.73 sqM) Est GFR (CKD-EPI)NonAf (>60 ml/min/1.73 sqM) Glucose (74-99) mg/dL POC Glucose (mg/dL) (75-99) mg/dL POC Glu Legend Maker ID Plasma Lactic Acid Deni 2.0 (0.7-2.0) mmol/L Calcium (8.4-10.2) mg/dL Phosphorus (2.5-4.5) mg/dL Magnesium (1.6-2.3) mg/dL Total Bilirubin (0.2-1.3) mg/dL AST (14-36) U/L ALT (4-34) U/L Alkaline Phosphatase (38-126) U/L Creatine Kinase (30-135) U/L Troponin I 0.013 (0.000-0.034) ng/mL Total Protein (6.3-8.2) g/dL Albumin (3.5-5.0) g/dL 09/28/19 09/28/19 Range/Units 01:02 02:32 WBC (3.8-10.6) k/uL RBC (3.80-5.40) m/uL Hgb (11.4-16.0) gm/dL Hct (34.0-46.0) % MCV (80.0-100.0) fL MCH (25.0-35.0) pg MCHC (31.0-37.0) g/dL RDW (11.5-15.5) % Plt Count (150-450) k/uL Neutrophils % (Manual) % Band Neutrophils % % Lymphocytes % (Manual) % Monocytes % (Manual) % Neutrophils # (Manual) (1.3-7.7) k/uL Lymphocytes # (Manual) (1.0-4.8) k/uL Monocytes # (Manual) (0-1.0) k/uL Nucleated RBCs (0-0) /100 WBC Manual Slide Review PT (9.0-12.0) sec INR (<1.2) APTT (22.0-30.0) sec Sodium (137-145) mmol/L Potassium (3.5-5.1) mmol/L Chloride (98-107) mmol/L Carbon Dioxide (22-30) mmol/L Anion Gap mmol/L BUN (7-17) mg/dL Creatinine (0.52-1.04) mg/dL Est GFR (CKD-EPI)AfAm (>60 ml/min/1.73 sqM) Est GFR (CKD-EPI)NonAf (>60 ml/min/1.73 sqM) Glucose (74-99) mg/dL POC Glucose (mg/dL) 248 H 198 H (75-99) mg/dL POC Glu Legend Maker ID Saturday, Kaci Saturday, Kaci Plasma Lactic Acid Deni (0.7-2.0) mmol/L Calcium (8.4-10.2) mg/dL Phosphorus (2.5-4.5) mg/dL Magnesium (1.6-2.3) mg/dL Total Bilirubin (0.2-1.3) mg/dL AST (14-36) U/L ALT (4-34) U/L Alkaline Phosphatase (38-126) U/L Creatine Kinase (30-135) U/L Troponin I (0.000-0.034) ng/mL Total Protein (6.3-8.2) g/dL Albumin (3.5-5.0) g/dL - EKG Data -: EKG Interpreted by Me (EKG shows normal sinus 63, AR 170 QRS 110 qtC 440) - Radiology Data Radiology results: report reviewed (CT brain x-ray chest and pelvis negative for acute disease), image reviewed Disposition Clinical Impression: Weakness, Hypoglycemia Disposition: HOME SELF-CARE Condition: Good Instructions (If sedation given, give patient instructions): Hypoglycemia in a Person with Diabetes (ED) Is patient prescribed a controlled substance at d/c from ED?: No Referrals: Bassem Schwartz DO [Primary Care Provider] - 1-2 days
[2019-09-28 00:25] LABS: Glucose,Whole Blood 66 mg/dL (75-99)
[2019-09-28] MEDS ORDERED: SODIUM CHLORIDE 0.9% 1,000 ML IV STA (00:47)
[2019-09-28 01:00] LABS: HCT 38.7 % (34.0-46.0); MCHC 33.5 g/dL (31.0-37.0); MCV 83.6 fL (80.0-100.0); Mean Platelet Volume 10.5; Platelet Count 152 k/uL (150-450); RBC 4.63 m/uL (3.80-5.40); RDW 14.6 % (11.5-15.5); WBC 5.4 k/uL (3.8-10.6)
[2019-09-28 01:04] LABS: Glucose,Whole Blood 248 mg/dL (75-99)
[2019-09-28 01:05] LABS: Albumin 4.6 g/dL (3.5-5.0); Magnesium 2.3 mg/dL (1.6-2.3); Phosphorus 3.5 mg/dL (2.5-4.5); Total Bilirubin 1.2 mg/dL (0.2-1.3)
[2019-09-28 01:12] LABS: Partial Thromboplastin Time 23.1 sec (22.0-30.0)
[2019-09-28 01:17] LABS: Potassium 5.4 mmol/L (3.5-5.1)
--- NOTE | 2019-09-28 01:17 | XR ---
EXAMINATION TYPE: XR abdomen acute w cxr DATE OF EXAM: 09/28/2019 COMPARISON: NONE HISTORY: Nausea and vomiting TECHNIQUE: 4 views FINDINGS: Heart and mediastinum are within normal limits. Lungs are clear. There is no pleural effusi on. There are clips from cholecystectomy. Bowel gas pattern is normal. There is no sign of intestinal obstruction or pneumoperitoneum. Fecal pattern is normal. There are spondylotic changes in the lumba r spine. There is right hip prosthesis. There is no evidence of a mass. IMPRESSION: No active cardiopulmonary disease. Nonacute abdomen.
[2019-09-28 01:18] LABS: Band Neutrophils % 2 %; Lymphocytes # (M) 0.65 k/uL (1.0-4.8); Monocytes # (M) 0.38 k/uL (0-1.0); Neutrophils % (M) 79 %; Nucleated Red Blood Cells 0 /100 WBC (0-0); Total Cells Counted 100
--- NOTE | 2019-09-28 01:28 | CT ---
EXAMINATION TYPE: CT brain wo con DATE OF EXAM: 09/28/2019 COMPARISON: None HISTORY: Patient presents with AMS. CT DLP: 1095.4 mGycm Automated exposure control for dose reduction was used. Ventricles have normal size. There is no mass effect nor midline shift. There is no sign of intracran ial hemorrhage. The calvarium is intact. There is no evidence of cerebral edema. There is very little pneumatization of the mastoid sinuses. IMPRESSION: Negative CT scan of the brain. Bilateral mastoid sinus lack of pneumatization could relate to chronic inflammation.
[2019-09-28 02:35] LABS: Glucose,Whole Blood 198 mg/dL (75-99)
[2019-09-28] MEDS ORDERED: IPRATROPIUM-ALBUTEROL 3 ML NEB INHALATION STA (02:46)
[2019-09-28] MEDS ORDERED: DEXAMETHASONE SOD PHOSPHATE 10 MG/ML 1 ML VIAL IV STA (02:46)
[2019-09-28 03:38] VITALS: BP 150/65; PULSE 67; RESP 16; TEMP 98.1
== END 2019-09-28 03:40 | disposition home or self-care (01) ==
LOC: EC 00:07
DX: E11.649 Type 2 diabetes mellitus with hypoglycemia without coma (principal); R53.1 Weakness; R50.9 Fever, unspecified; R53.81 Other malaise; R11.0 Nausea; J45.909 Unspecified asthma, uncomplicated; M79.7 Fibromyalgia; E78.5 Hyperlipidemia, unspecified; I10 Essential (primary) hypertension; M19.90 Unspecified osteoarthritis, unspecified site; F32.9 Major depressive disorder, single episode, unspecified; Z79.891 Long term (current) use of opiate analgesic; Z86.14 Personal history of Methicillin resistant Staphylococcus aureus infection; Z96.641 Presence of right artificial hip joint; Z87.891 Personal history of nicotine dependence; Z79.4 Long term (current) use of insulin; Z79.899 Other long term (current) drug therapy; Z88.0 Allergy status to penicillin; Z88.5 Allergy status to narcotic agent; Z88.1 Allergy status to other antibiotic agents
CPT/HCPCS: 36415; 94640; 93005; 80053; 82550; 83605; 83735; 84100; 84484; 85025; 85610; 85730; 74022; 70450; 99285; 96374; 96361 ×3; J1100

== ENCOUNTER → 2020-05-23 | Outpatient (CLI) | payer BC ==
--- NOTE | 2020-05-24 12:44 | MM ---
Reason for exam: additional evaluation requested from prior study. Last mammogram was performed 1 year and 6 months ago. History: Patient is postmenopausal. Family history of breast cancer in sister at age 21. Benign US biopsy breast VAD RT of the right breast, December 01, 2018. Physical Findings: Nurse did not find any significant physical abnormalities on exam. MG Diagnostic Mammo w CAD GALLITO Bilateral CC and MLO view(s) were taken. Prior study comparison: December 01, 2018, right breast MG diagnostic mammo RT wo CAD. November 07, 2018, right breast MG work up mamm w CAD RT. There are scattered fibroglandular densities. There are benign appearing round linear calcifications in the left breast. Previous mammotome biopsy in the right breast. There is no discrete abnormality. These results were verbally communicated with the patient and result sheet given to the patient on 05/23/20. ASSESSMENT: Benign, BI-RAD 2 RECOMMENDATION: Routine screening mammogram of both breasts in 1 year.
== END | disposition home or self-care (01) ==
LOC: RADMAMWWP 13:28
PROVIDERS: ATTEND Family Medicine
DX: R92.8 Other abnormal and inconclusive findings on diagnostic imaging of breast (principal)
CPT/HCPCS: 77066

== ENCOUNTER 2021-03-10 23:16 | Emergency (ER) | payer BC ==
[2021-03-10 23:24] VITALS: TEMP 97.6
--- NOTE | 2021-03-11 00:09 | CT ---
EXAMINATION TYPE: CT brain wo con DATE OF EXAM: 03/10/2021 COMPARISON: 09/28/2019 HISTORY: montiel Weakness CT DLP: 1086.4 mGycm Automated exposure control for dose reduction was used. Ventricles and sulci appear normal. There is no mass effect nor midline shift. There is no sign of in tracranial hemorrhage. Calvarium is intact. Skull base is intact. IMPRESSION: Normal unenhanced head CT scan.
--- NOTE | 2021-03-11 00:42 | ED ---
Headache HPI - General Chief Complaint: Headache Stated Complaint: Headache Time Seen by Provider: 03/10/21 23:25 Mode of arrival: ambulatory Limitations: no limitations - History of Present Illness Initial Comments: 61 year-old female patient presents to the emergency department for evaluation of headache. States just prior to arrival she had a sharp pain across her forehead with onset of blurred vision to the right eye. Patient states symptoms have resolved. She does feel hot. She does take eliquis for history of PE. Denies sinus congestion. Denies fever or chills. Denies any temporal pain or pain with chewing. Denies any recent head injury. Denies history of similar symptoms. Patient denies any recent rash, fever, chills, cough, shortness of breath, chest pain, abdominal pain, nausea, vomiting, diarrhea, constipation, back pain, numbness, tingling, dizziness, weakness, hematuria, dysuria, urinary urgency, urinary frequency, or any other complaints. - Related Data Home Medications Medication Instructions Recorded Confirmed Baclofen 10 mg PO TID 04/08/17 08/10/19 Insulin Glargine,Hum.rec.anlog 110 units SQ HS 04/08/17 08/10/19 [Toujeo Solostar] Pregabalin [Lyrica] 75 mg PO TID 04/08/17 08/10/19 Ramipril 10 mg PO BID 04/08/17 08/10/19 Albuterol Inhaler (Mhu) [Ventolin 1 - 2 puff INHALATION RT-Q6H PRN 08/12/17 08/10/19 Hfa Inhaler (Mhu)] Fenofibrate Nanocrystallized 145 mg PO DAILY 08/12/17 08/10/19 [Fenofibrate] atenoloL [Tenormin] 50 mg PO BID 11/17/18 08/10/19 Furosemide [Lasix] 20 mg PO DAILY 08/10/19 08/10/19 Insulin Aspart [NovoLOG Flexpen] 8 units SQ AC-BID PRN 08/10/19 08/10/19 Montelukast Sodium [Singulair] 10 mg PO HS 08/10/19 08/10/19 hydroCHLOROthiazide 50 mg PO DAILY 08/10/19 08/10/19 metFORMIN HCL [metFORMIN HCL ER] 2,000 mg PO DAILY@1600 08/10/19 08/10/19 oxyCODONE HCL [oxyCODONE HCL (IR)] 30 mg PO Q6H PRN 08/10/19 08/10/19 Previous Rx's Medication Instructions Recorded Apixaban [Eliquis Starter Pack 0 mg PO DIRECTED 30 Days #1 pack 08/11/19 (for VTE)] Allergies Allergy/AdvReac Type Severity Reaction Status Date / Time clavulanic acid Allergy Anaphylaxis Verified 03/10/21 23:24 [From Augmentin] fentanyl Allergy Anaphylaxis Verified 03/10/21 23:24 levofloxacin [From Levaquin] Allergy Anaphylaxis Verified 03/10/21 23:24 amoxicillin AdvReac doesn't Verified 03/10/21 23:24 work codeine AdvReac Abdominal Verified 03/10/21 23:24 Pain Review of Systems ROS Statement: Those systems with pertinent positive or pertinent negative responses have been documented in the HPI. ROS Other: All systems not noted in ROS Statement are negative. Past Medical History Past Medical History: Asthma, Diabetes Mellitus, Fibromyalgia, Hyperlipidemia, Hypertension, Musculoskeletal Disorder, Osteoarthritis (OA) Additional Past Medical History / Comment(s): Rheumatic fever as a child History of Any Multi-Drug Resistant Organisms: MRSA Date of last positivie culture/infection: 2008 MDRO Source:: R foot Past Surgical History: Adenoidectomy, Bladder Surgery, Section, Cholecystectomy, Ear Surgery, Joint Replacement, Tonsillectomy Additional Past Surgical History / Comment(s): R hip replacement; 2 hand surgeries Past Anesthesia/Blood Transfusion Reactions: Previous Problems w/ Anesthesia, Family History of Problems w/ Anesthesia, Motion Sickness, Postoperative Nausea & Vomiting (PONV) Additional Past Anesthesia/Blood Transfusion Reaction / Comment(s): mother gets PONV Past Psychological History: Depression Smoking Status: Never smoker Past Alcohol Use History: None Reported Past Drug Use History: None Reported - Past Family History Father Family Medical History: Cancer Mother Family Medical History: Cancer Brother(s) Family Medical History: Cancer General Exam Limitations: no limitations General appearance: alert, in no apparent distress, other (Physical well- developed, well-nourished adult female patient in no acute distress. Vital signs upon presentation to which are 97.6F, pulse 67, respirations 20, blood pressure 162/87, pulse ox 99% on room air.) Eye exam: Present: normal appearance, PERRL, EOMI. Absent: scleral icterus, conjunctival injection, nystagmus, periorbital swelling ENT exam: Present: normal exam, normal oropharynx, mucous membranes moist Respiratory exam: Present: normal lung sounds bilaterally. Absent: respiratory distress, wheezes, rales, rhonchi, stridor Cardiovascular Exam: Present: regular rate, normal rhythm, normal heart sounds. Absent: systolic murmur, diastolic murmur, rubs, gallop, clicks GI/Abdominal exam: Present: soft, normal bowel sounds. Absent: distended, tenderness, guarding, rebound, rigid Neurological exam: Present: alert, oriented X3, CN II-XII intact Expanded Speech: Present: fluid speech Cranial nerves: EOM's Intact: Normal, Tongue Deviation: Normal, Nystagmus: Normal Motor strength exam: RUE: 5, LUE: 5, RLE: 5, LLE: 5 Psychiatric exam: Present: normal affect, normal mood Skin exam: Present: warm, dry, intact, normal color. Absent: rash Course Vital Signs 03/10/21 03/11/21 23:19 00:47 Temperature 97.6 F Pulse Rate 67 66 Respiratory 20 18 Rate Blood Pressure 162/87 136/65 O2 Sat by Pulse 99 97 Oximetry Medical Decision Making - Medical Decision Making 61-year-old female patient presents to the emergency department today for evaluation of headache with visual disturbance. Physical examination was unremarkable. She is neurologically intact with no focal deficits. Symptoms h ave resolved by the time of my exam. She did report feeling hot and having "palpitations". EKG was normal sinus rhythm. CT brain was unremarkable. Upon reevaluation she is resting complaint is requesting discharge. She is instructed to follow-up with her primary care physician for recheck in 1-2 days. Return parameters were discussed in detail. She verbalizes understanding and agrees with this plan. Case discussed with my attending Dr. Fonseca. - EKG Data -: EKG Interpreted by Me EKG Comments: EKG obtained at 2341 shows normal sinus rhythm with a ventricular 67, VA interval 180, QRS duration 110, QTC 442, QTc 467. No evidence of ST elevation or depression. - Radiology Data Radiology results: report reviewed, image reviewed CT brain without contrast was obtained. Report was reviewed in its entirety. Impression by Dr. Ward shows normal unenhanced head CT scan per Disposition Clinical Impression: Acute headache Disposition: HOME SELF-CARE Condition: Good Instructions (If sedation given, give patient instructions): Acute Headache (ED) Additional Instructions: Follow-up with your primary care physician for recheck in 1-2 days. Return to the emergency department if your symptoms change or worsen. Is patient prescribed a controlled substance at d/c from ED?: No Referrals: Bassem Schwartz DO [Primary Care Provider] - 1-2 days Time of Disposition: 00:42
[2021-03-11 00:53] VITALS: BP 136/65; PULSE 66; RESP 18
== END 2021-03-11 00:47 | disposition home or self-care (01) ==
LOC: EC 23:16
DX: R51.9 Headache, unspecified (principal); E11.9 Type 2 diabetes mellitus without complications; I10 Essential (primary) hypertension; E78.5 Hyperlipidemia, unspecified; J45.909 Unspecified asthma, uncomplicated; M79.7 Fibromyalgia; M19.90 Unspecified osteoarthritis, unspecified site; F32.9 Major depressive disorder, single episode, unspecified; Z79.4 Long term (current) use of insulin; Z79.51 Long term (current) use of inhaled steroids; Z79.01 Long term (current) use of anticoagulants; Z88.0 Allergy status to penicillin; Z88.5 Allergy status to narcotic agent; Z88.8 Allergy status to other drugs, medicaments and biological substances
CPT/HCPCS: 70450; 93005; 99284

== ENCOUNTER → 2021-03-16 | Outpatient (CLI) | payer BC | END | disposition home or self-care (01) | LOC: LABWHC1 11:58 | PROVIDERS: ATTEND Family Medicine | DX: E83.52 Hypercalcemia (principal) | CPT/HCPCS: 36415; 83970 ==

== ENCOUNTER → 2022-10-01 | Outpatient (CLI) | payer BC ==
--- NOTE | 2022-10-02 20:54 | MM ---
Reason for Exam: Screening (asymptomatic). Last mammogram was performed 2 year(s) and 4 month(s) ago. Patient History: Menarche at age 11. First Full-Term at age 29. Postmenopausal. 12/01/2018, Benign Core Biopsy on the right side. Sister had breast cancer, age 21. Risk Values: Mere 5 year model risk: 3.7%. NCI Lifetime model risk: 17.6%. Prior Study Comparison: 11/07/2018 Right Diagnostic Mammogram, [facility]. 12/01/2018 Right Diagnostic Mammogram, [facility]. 05/23/2020 Bilateral Diagnostic Mammogram, [facility]. Tissue Density: There are scattered fibroglandular densities. Findings: Analyzed By CAD. There is no suspicious group of microcalcifications or new suspicious mass in either breast. Overall Assessment: Benign, BI-RAD 2 Management: Screening Mammogram of both breasts in 1 year. 1. Patient should continue monthly self breast exams. 2. A clinical breast exam by your physician is recommended on an annual basis. 3. This exam should not preclude additional follow-up of suspicious palpable abnormalities. Electronically signed and approved by: Isaías Sanchez M.D. Radiologist
== END | disposition home or self-care (01) ==
LOC: RADMAMWWP 15:02
PROVIDERS: ATTEND Family Medicine
DX: Z12.31 Encounter for screening mammogram for malignant neoplasm of breast (principal); Z78.0 Asymptomatic menopausal state; Z80.3 Family history of malignant neoplasm of breast
CPT/HCPCS: 77067